=== PATIENT | female | born 1940 | race Caucasian/White ===

== ENCOUNTER → 2017-07-12 | Outpatient (CLI) | payer MEDICARE, BC ==
--- NOTE | 2017-07-12 19:10 | CT ---
EXAMINATION TYPE: CT brain wo con DATE OF EXAM: 07/12/2017 COMPARISON: NONE HISTORY: Left sided facial paralysis CT DLP: 999.8 mGycm Automated exposure control for dose reduction was used. FINDINGS: There are bilateral neural stimulator implants in the left and right thalamus. There is some enlargem ent of the lateral ventricles. There is cerebral cortical atrophy. There is no mass effect nor midlin e shift. There is no sign of intracranial hemorrhage. There is hypodensity in the anterior left inter nal capsule. 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 NO ACUTE INTRACRANIAL ABNORMALITY.
== END | disposition home or self-care (01) ==
LOC: RADCTMAIN 17:36
PROVIDERS: ATTEND Internal Medicine
DX: G31.9 Degenerative disease of nervous system, unspecified (principal)
CPT/HCPCS: 70450

== ENCOUNTER → 2018-04-01 | Outpatient (CLI) | payer MEDICARE, BC ==
--- NOTE | 2018-04-01 13:11 | CT ---
EXAMINATION TYPE: CT cervical spine wo con DATE OF EXAM: 04/01/2018 COMPARISON: None HISTORY: hyperreflexia, rule out herniation or cord compression CT DLP: 376 mGycm. Automated Exposure Control for Dose Reduction was Utilized. TECHNIQUE: CT scan of the cervical spine is obtained without contrast, axial images are obtained, sa gittal and coronal reformatted images are also reviewed. FINDINGS: Cervical spine is visualized in its entirety from C1 through upper thoracic levels, demonst rates slight S-shaped scoliotic curvature on coronal images into the thoracic spine without evidence of acute fracture or dislocation. Prevertebral soft tissue appears within normal limits. The C1-C2 articulation is within normal limits on the coronal images. Vertebral body heights are maintained. There is moderate disc space narrowing C3-C4 level. There is m oderate to advanced disc space narrowing with moderate anterior spurring at C6-C7 level. No large pos terior disc herniations however present on sagittal images. Axial images show uncovertebral facet degenerative changes bilaterally at C3-C4 level contributing to mild bilateral neural foraminal narrowing. Posterior central disc protrusion is effacing anterior th ecal sac on axial image 33. Axial images at C4-C5 level show left-sided uncovertebral facet degenerative changes causing asymmetr ic mild to moderate left-sided neural foraminal narrowing. There is asymmetric mild left-sided neural foraminal narrowing due to uncovertebral facet degenerativ e changes at C5-C6 level axial image 45. Thyroid gland shows 1.5 cm low dense nodule posteriorly lowe r pole level coronal image 6. There is partial visualization of pacemaker wires and moderate calcifie d plaque in the visualized thoracic aorta. There is moderate calcified plaque bilateral carotid bulbs . IMPRESSION: Multilevel degenerative changes as detailed above. No CT evidence for focal cord izabella dannie however. Advise thyroid ultrasound for greater than 1 cm thyroid nodule to further evaluate and characterize.
--- NOTE | 2018-04-01 13:37 | CT ---
EXAMINATION TYPE: CT lumbar spine wo con DATE OF EXAM: 04/01/2018 12:29 PM COMPARISON: None HISTORY: Hyperreflexia rule out prominent disc herniation or cord compression CT DLP: 910 mGycm Automated exposure control for dose reduction was used. Unenhanced CT of the lumbar spine was performed. Bone and soft tissue window settings are submitted as well as coronal and sagittal reconstructions. Findings: There are 5 lumbar type vertebra identified. There is sacralized L5 segment with asymmetric articulation or narrowing of the left L5-S1 joint coronal image 25. There is grade 1 anterolisthesis of L3 on L4 measured 6 to 7 mm sagittal image 22. There is advanced disc space narrowing with vacuum disc phenomenon and endplate sclerosis L3-L4 level. There is vacuum disc phenomenon with mild to mod erate disc space narrowing L4-L5 level. Vertebral body heights are maintained. No acute fracture is s een. No significant spurring is noted. Axial images show the T11-T12, T12-L1, and L1-L2 levels to appear within normal limits. Axial images at L2-L3 level show mild broad disc bulge mildly effacing anterior thecal sac with mild facet degenerative changes bilaterally. Bilateral neural foramina are patent. Axial images at L3-L4 level show spondylolisthesis with moderate facet degenerative changes and ligam entum flavum hypertrophy. There is mild to moderate bilateral inferior neural foraminal narrowing see n. Axial images at L4-L5 level show broad disc bulge mildly effacing anterior thecal sac with mild to mo derate facet degenerative changes bilaterally. There is mild bilateral anterior inferior neural lilian inal narrowing at this level identified. Axial images at L5-S1 level are felt within normal limits. There is moderate to severe calcified plaque of the aorta extending into branch vessels. There is foc al ectasia measuring up to 2.0 cm AP diameter axial image 34. Few diverticula in the right-sided colo n are present. There is partial visualization of significant diverticular disease in the proximal sig moid colon of the left upper pelvis. IMPRESSION: Spondylolisthesis L3-L4 level causes most prominent spinal canal effacement or narrowing. Additional disc herniation L4-L5 level effaces anterior thecal sac. Transitional type L5 vertebra no landen. Prominent sigmoid colonic diverticular disease partially imaged.
== END | disposition home or self-care (01) ==
LOC: RADCTMAIN 11:43
PROVIDERS: ATTEND Psychiatry & Neurology Neurology
DX: M48.02 Spinal stenosis, cervical region (principal); M99.71 Connective tissue and disc stenosis of intervertebral foramina of cervical region; M50.21 Other cervical disc displacement, high cervical region; M47.812 Spondylosis without myelopathy or radiculopathy, cervical region; M51.26 Other intervertebral disc displacement, lumbar region; M43.16 Spondylolisthesis, lumbar region
CPT/HCPCS: 72125; 72131

== ENCOUNTER → 2018-06-20 | Outpatient (CLI) | payer MEDICARE, BC ==
[2018-06-20 13:08] LABS: Glucose 2 Hour 123 mg/dL
[2018-06-20 16:04] LABS: T4, Free (Free Thyroxine) 1.4 ng/dL (0.80-1.80)
[2018-06-20 16:19] LABS: Protein, Total 6.6 g/dL (6.2-8.2)
[2018-06-21 12:24] LABS: Albumin 3.68 g/dL (3.80-4.90); Gamma Globulin 1.06 g/dL (0.70-1.50)
== END ==
LOC: LABWHC1 08:28
PROVIDERS: ATTEND Psychiatry & Neurology Neurology
DX: R20.0 Anesthesia of skin (principal)
CPT/HCPCS: 36415; 82607; 82947; 82950; 83090; 83883; 83921; 84165; 84439; 84443; 84481; 86334

== ENCOUNTER 2018-07-03 14:05 | Inpatient (IN) | payer MEDICARE, BC ==
[2018-07-03] MEDS ORDERED: ASPIRIN 81 MG PO STA (14:25)
--- NOTE | 2018-07-03 14:29 | ED ---
General Adult HPI - General Chief complaint: Chest Pain Stated complaint: chest pain Time Seen by Provider: 07/03/18 14:16 Source: patient, family, RN notes reviewed Mode of arrival: wheelchair Limitations: no limitations - History of Present Illness Initial comments: Patient is a pleasant 78-year-old female presenting to the emergency department with family. Patient states she did have palpitations. Patient had similar symptoms previously associated with atrial fibrillation. Patient felt like her heart was racing. Symptoms lasted about 1 hour and then resolved. Patient did have associated dyspnea and left-sided back discomfort. Patient did not have discomfort of the anterior chest. Patient currently symptom-free. - Related Data Home Medications Medication Instructions Recorded Confirmed Azelastine HCl [Astepro] 1 spray NASAL BID 07/03/18 07/03/18 Cholecalciferol (Vitamin D3) 2,000 unit PO DAILY 07/03/18 07/03/18 [Vitamin D3] Clopidogrel Bisulfate [Plavix] 75 mg PO DAILY 07/03/18 07/03/18 Cranberry Fruit Extract [Cranberry] 200 mg PO DAILY 07/03/18 07/03/18 Diltiazem Cd [Cardizem Cd] 300 mg PO DAILY 07/03/18 07/03/18 Ferrous Sulfate [Feosol] 325 mg PO DAILY 07/03/18 07/03/18 L.acidoph,Paracasei, B.lactis 1 cap PO DAILY 07/03/18 07/03/18 [Probiotic] Levothyroxine Sodium [Synthroid] 25 mcg PO DAILY 07/03/18 07/03/18 Losartan Potassium [Cozaar] 100 mg PO DAILY 07/03/18 07/03/18 Meclizine HCl 25 mg PO TID 07/03/18 07/03/18 Metoprolol Tartrate 25 mg PO BID 07/03/18 07/03/18 Multivitamins, Thera [Multivitamin 1 tab PO DAILY 07/03/18 07/03/18 (formulary)] Salyer-3 Fatty Acids [Salyer-3] 1,000 mg PO DAILY 07/03/18 07/03/18 Polyethylene Glycol 3350 [Miralax] 17 gm PO HS PRN 07/03/18 07/03/18 Temazepam [Restoril] 15 mg PO HS 07/03/18 07/03/18 Ubidecarenone [Co Q-10] 100 mg PO DAILY 07/03/18 07/03/18 hydrALAZINE HCL 50 mg PO BID 07/03/18 07/03/18 Allergies Allergy/AdvReac Type Severity Reaction Status Date / Time acetaminophen [From Vicodin] Allergy Verified 07/03/18 14:28 amantadine Allergy Verified 07/03/18 14:28 clonidine [From Catapres] Allergy Verified 07/03/18 14:28 hydrocodone Allergy Verified 07/03/18 14:28 nadolol [From Corgard] Allergy Verified 07/03/18 14:28 primidone [From Mysoline] Allergy Verified 07/03/18 14:28 Sulfa (Sulfonamide Allergy Verified 07/03/18 14:28 Antibiotics) Tetracyclines Allergy Verified 07/03/18 14:28 Review of Systems ROS Statement: Those systems with pertinent positive or pertinent negative responses have been documented in the HPI. ROS Other: All systems not noted in ROS Statement are negative. Constitutional: Denies: fever Eyes: Denies: eye pain ENT: Denies: ear pain Respiratory: Reports: dyspnea Cardiovascular: Reports: chest pain Endocrine: Denies: fatigue Gastrointestinal: Denies: abdominal pain Genitourinary: Denies: urgency Musculoskeletal: Denies: back pain Skin: Denies: rash Neurological: Denies: weakness Past Medical History Past Medical History: Atrial Fibrillation, Coronary Artery Disease (CAD), Chest Pain / Angina, CVA/TIA, Hypertension Additional Past Medical History / Comment(s): deep brain stimulator History of Any Multi-Drug Resistant Organisms: None Reported Past Surgical History: Appendectomy, Hysterectomy, Tonsillectomy Additional Past Surgical History / Comment(s): sinus surg Past Psychological History: No Psychological Hx Reported Smoking Status: Never smoker Past Alcohol Use History: None Reported Past Drug Use History: None Reported General Exam Limitations: no limitations General appearance: alert, in no apparent distress Head exam: Present: atraumatic Eye exam: Present: normal appearance, PERRL ENT exam: Present: normal oropharynx Neck exam: Present: normal inspection Respiratory exam: Present: normal lung sounds bilaterally. Absent: chest wall tenderness Cardiovascular Exam: Present: regular rate, normal rhythm Expanded Peripheral pulses: 2+: Radial (R), Radial (L), Posterior Tibialis (R), Posterior Tibialis (L), Dorsalis Pedis (R), Dorsalis Pedis (L) GI/Abdominal exam: Present: soft. Absent: tenderness Extremities exam: Present: normal inspection. Absent: pedal edema, calf tenderness Back exam: Present: normal inspection. Absent: tenderness Neurological exam: Present: alert Psychiatric exam: Present: normal affect, normal mood Skin exam: Present: normal color Course Vital Signs 07/03/18 14:08 Temperature 97.7 F Pulse Rate 80 Respiratory 18 Rate Blood Pressure 176/80 O2 Sat by Pulse 97 Oximetry EKG Findings - EKG Comments: EKG Findings:: Sinus rhythm at 79. OH 118. QRS 92. QT 348. QTC 399. Normal axis. Normal QRS. Nonspecific T waves. Medical Decision Making - Medical Decision Making Patient reevaluated and resting comfortably in bed. Patient and family updated on results and plan. Case was discussed with Dr. hodges, who will admit for hospital call. Patient does not meet sepsis criteria. Patient will be be covered with antibiotics for infiltrate. Cardiology will be placed on consult. - Lab Data Result diagrams: 07/03/18 14:37 07/03/18 14:37 Lab Results 07/03/18 07/03/18 07/03/18 Range/Units 14:37 14:37 14:37 WBC 11.0 H (3.8-10.6) k/uL RBC 4.60 (3.80-5.40) m/uL Hgb 13.5 (11.4-16.0) gm/dL Hct 42.5 (34.0-46.0) % MCV 92.3 (80.0-100.0) fL MCH 29.3 (25.0-35.0) pg MCHC 31.8 (31.0-37.0) g/dL RDW 12.9 (11.5-15.5) % Plt Count 279 (150-450) k/uL Neutrophils % 65 % Lymphocytes % 24 % Monocytes % 6 % Eosinophils % 3 % Basophils % 0 % Neutrophils # 7.1 (1.3-7.7) k/uL Lymphocytes # 2.6 (1.0-4.8) k/uL Monocytes # 0.7 (0-1.0) k/uL Eosinophils # 0.4 (0-0.7) k/uL Basophils # 0.0 (0-0.2) k/uL PT 9.7 (9.0-12.0) sec INR 0.9 (<1.2) APTT 23.3 (22.0-30.0) sec D-Dimer 1.16 H (<0.60) mg/L FEU Sodium 138 (137-145) mmol/L Potassium 4.1 (3.5-5.1) mmol/L Chloride 106 (98-107) mmol/L Carbon Dioxide 24 (22-30) mmol/L Anion Gap 8 mmol/L BUN 28 H (7-17) mg/dL Creatinine 0.96 (0.52-1.04) mg/dL Est GFR (CKD-EPI)AfAm 65 (>60 ml/min/1.73 sqM) Est GFR (CKD-EPI)NonAf 56 (>60 ml/min/1.73 sqM) Glucose 147 H (74-99) mg/dL Calcium 10.3 H (8.4-10.2) mg/dL Magnesium 2.1 (1.6-2.3) mg/dL Total Bilirubin 0.5 (0.2-1.3) mg/dL AST 21 (14-36) U/L ALT 18 (9-52) U/L Alkaline Phosphatase 56 (38-126) U/L Troponin I (0.000-0.034) ng/mL Total Protein 7.5 (6.3-8.2) g/dL Albumin 3.9 (3.5-5.0) g/dL 07/03/18 Range/Units 14:37 WBC (3.8-10.6) k/uL RBC (3.80-5.40) m/uL Hgb (11.4-16.0) gm/dL Hct (34.0-46.0) % MCV (80.0-100.0) fL MCH (25.0-35.0) pg MCHC (31.0-37.0) g/dL RDW (11.5-15.5) % Plt Count (150-450) k/uL Neutrophils % % Lymphocytes % % Monocytes % % Eosinophils % % Basophils % % Neutrophils # (1.3-7.7) k/uL Lymphocytes # (1.0-4.8) k/uL Monocytes # (0-1.0) k/uL Eosinophils # (0-0.7) k/uL Basophils # (0-0.2) k/uL PT (9.0-12.0) sec INR (<1.2) APTT (22.0-30.0) sec D-Dimer (<0.60) mg/L FEU Sodium (137-145) mmol/L Potassium (3.5-5.1) mmol/L Chloride (98-107) mmol/L Carbon Dioxide (22-30) mmol/L Anion Gap mmol/L BUN (7-17) mg/dL Creatinine (0.52-1.04) mg/dL Est GFR (CKD-EPI)AfAm (>60 ml/min/1.73 sqM) Est GFR (CKD-EPI)NonAf (>60 ml/min/1.73 sqM) Glucose (74-99) mg/dL Calcium (8.4-10.2) mg/dL Magnesium (1.6-2.3) mg/dL Total Bilirubin (0.2-1.3) mg/dL AST (14-36) U/L ALT (9-52) U/L Alkaline Phosphatase (38-126) U/L Troponin I <0.012 (0.000-0.034) ng/mL Total Protein (6.3-8.2) g/dL Albumin (3.5-5.0) g/dL - Radiology Data Radiology results: report reviewed (Computed tomography scan the chest negative for pulmonary embolism. There is concern for infiltrate.), image reviewed (Chest x-ray shows no heart failure. There may be minimal infiltrate left base.) Disposition Clinical Impression: Pneumonia, Palpitations Disposition: ADMITTED IP TO THIS HOSP Is patient prescribed a controlled substance at d/c from ED?: No Referrals: Sam Desai MD [Primary Care Provider] - 1-2 days Decision Time: 16:18
[2018-07-03 14:48] LABS: Basophils % (A) 0 %; Eosinophils # (A) 0.4 k/uL (0-0.7); Eosinophils % (A) 3 %; HCT 42.5 % (34.0-46.0); HGB 13.5 gm/dL (11.4-16.0); Lymphocytes # (A) 2.6 k/uL (1.0-4.8); Lymphocytes % (A) 24 %; MCH 29.3 pg (25.0-35.0); MCHC 31.8 g/dL (31.0-37.0); MCV 92.3 fL (80.0-100.0); Mean Platelet Volume 6.7; Monocytes # (A) 0.7 k/uL (0-1.0); Monocytes % (A) 6 %; Neutrophils # (A) 7.1 k/uL (1.3-7.7); Neutrophils % (A) 65 %; Platelet Count 279 k/uL (150-450); RDW 12.9 % (11.5-15.5)
[2018-07-03 15:02] LABS: INR 0.9 (<1.2); Partial Thromboplastin Time 23.3 sec (22.0-30.0); Prothrombin Time 9.7 sec (9.0-12.0)
[2018-07-03 15:07] LABS: Albumin 3.9 g/dL (3.5-5.0); Calcium 10.3 mg/dL (8.4-10.2); Magnesium 2.1 mg/dL (1.6-2.3); Potassium 4.1 mmol/L (3.5-5.1); Total Bilirubin 0.5 mg/dL (0.2-1.3); Total Protein 7.5 g/dL (6.3-8.2)
[2018-07-03 15:09] LABS: D-Dimer 1.16 mg/L FEU (<0.60)
--- NOTE | 2018-07-03 15:10 | XR ---
EXAMINATION TYPE: XR chest 2V DATE OF EXAM: 07/03/2018 COMPARISON: NONE HISTORY: Chest pain TECHNIQUE: Frontal and lateral views of the chest are obtained. FINDINGS: Heart and mediastinum are normal. Thoracic aorta is atheromatous. There are chest leads. C ostophrenic angles are clear of fluid. There is minimal density at the left costophrenic angle consis tent with small infiltrate or atelectasis. IMPRESSION: No heart failure. Minimal infiltrate at the lateral left lung base. Normal heart.
[2018-07-03] MEDS ORDERED: SODIUM CHLORIDE 0.9% 1,000 ML IV STA (15:14)
--- NOTE | 2018-07-03 16:13 | CT ---
EXAMINATION TYPE: CT angio chest DATE OF EXAM: 07/03/2018 3:51 PM COMPARISON: None HISTORY: SOB, Chest pain and tachycardia CT DLP: 193.3 mGycm Automated exposure control for dose reduction was used. CONTRAST: CTA scan of the thorax is performed with IV Contrast, patient injected with 80 mL of Isovue 370, pulm onary embolism protocol. There are 3-D post processed images.. FINDINGS: There is patchy reticular interstitial infiltrate in the mid and lower lung mccauley. There is mild car diomegaly. There is no pericardial effusion. Thoracic aorta is atheromatous. There is no evidence of aneurysm. There is no evidence of dissection. Ascending aorta measures 3.2 cm. There is normal contra st opacification of the pulmonary arteries. I see no filling defect. There are no hilar masses. There is enlarged pretracheal lymph node that measures 2.3 cm. The bony thorax is intact. IMPRESSION: NO EVIDENCE OF PULMONARY EMBOLISM. ATHEROSCLEROTIC VASCULAR DISEASE. SINGLE ENLARGED PRETRACHEAL LYMP H NODE.
[2018-07-03] MEDS ORDERED: IPRATROPIUM-ALBUTEROL 3 ML NEB INHALATION PRN (16:19)
[2018-07-03] MEDS ORDERED: PNEUMONIA PROTOCOL UTILIZED 1 EACH MISC PO PRN (16:19)
[2018-07-03] MEDS ORDERED: AZITHROMYCIN 500 MG in SODIUM CHLORIDE 0.9% 250 ML IVPB STA (16:19)
[2018-07-03] MEDS ORDERED: cefTRIAXone IN SWFI 1,000 MG/10 ML SYRINGE IVP STA (16:23)
[2018-07-03] MEDS: SODIUM CHLORIDE 0.9% 1,000 ML IV SCH (17:27)
[2018-07-03] MEDS: MECLIZINE 25 MG TAB PO SCH (20:46)
[2018-07-03] MEDS: AZELASTINE 137MCG/SPRAY NASAL SCH ×2 (20:46→20:52)
[2018-07-03] MEDS: METOPROLOL TARTRATE 25 MG TAB PO SCH (20:46)
[2018-07-03] MEDS: TEMAZEPAM 15 MG CAP PO SCH (20:46)
[2018-07-03] MEDS: hydrALAZINE HCL 50 MG TAB PO SCH (20:46)
[2018-07-04] MEDS: SODIUM CHLORIDE 0.9% 1,000 ML IV SCH ×3 (00:28→23:37)
[2018-07-04] MEDS: LEVOTHYROXINE 25 MCG TAB PO SCH (05:09)
--- NOTE | 2018-07-04 09:25 | XR ---
EXAMINATION TYPE: XR chest 2V DATE OF EXAM: 07/04/2018 COMPARISON: Chest x-ray and CTA chest from yesterday. HISTORY: Pneumonia. TECHNIQUE: Frontal and lateral views of the chest are obtained. FINDINGS: There is left basilar linear opacity favoring atelectasis. Right lung is clear. No signifi cant pleural effusion or pneumothorax is seen. The cardiac silhouette size is stable and within kaylee l limits. Stimulator device overlies anterior left chest with leads extending superiorly. Atheroscler otic thoracic aorta is noted. The osseous structures are intact. IMPRESSION: Linear opacity left lung base favors atelectasis.
[2018-07-04] MEDS: DILTIAZEM CD 300 MG CAP.ER.24H PO SCH (09:37)
[2018-07-04] MEDS: CLOPIDOGREL 75 MG TAB PO SCH (09:37)
[2018-07-04] MEDS: LOSARTAN 50 MG TAB PO SCH (09:37)
[2018-07-04] MEDS: MECLIZINE 25 MG TAB PO SCH ×3 (09:37→22:26)
[2018-07-04] MEDS: METOPROLOL TARTRATE 25 MG TAB PO SCH ×2 (09:37→19:57)
[2018-07-04] MEDS: hydrALAZINE HCL 50 MG TAB PO SCH ×2 (09:37→19:57)
[2018-07-04] MEDS: AZELASTINE 137MCG/SPRAY NASAL SCH ×2 (09:38→19:58)
--- NOTE | 2018-07-04 09:52 | P.CRDCN ---
History of Present Illness History of present illness: This is a pleasant 78-year-old female past medical history significant for paroxysmal atrial fibrillation, hypertension, history of CVA/TIA in the past and Parkinson's disease. She uses a walker for ambulation and has a brain stimulator in place. The patient denies history of coronary artery disease. She follows with Dr. Fernández out of [facility] for cardiology. We have been asked to see her in consultation secondary to an episode of palpitations noted yesterday. Yesterday morning she took a shower, which she states is quite taxing for her. Shortly thereafter she was walking to the [facility] and she started feeling dizzy and lightheaded. She sat down to prevent herself from falling and then started feeling her heart racing. She states the palpitations persisted for approximately one hour. She does have a history of atrial fibrillation in the past and states this felt like a similar episode of going into atrial fibrillation. She then started having a discomfort in the left scapular region. Her symptoms of pain subsided when the palpitations subsided. She also describes feeling increasingly short of breath and fatigue over the previous one year. EKG on arrival reveals sinus mechanism with PACs, nonspecific T-wave abnormalities laterally with mild ST depression noted laterally. There is no old for comparison. Chest x-ray reveals a left lower lobe infiltrate. No heart failure. CT chest is negative for pulmonary embolism with redemonstration of the left lobe infiltrate. She has been started on antibiotics in the emergency department. Laboratory data reviewed, WBC 11, hemoglobin 13.5, platelets 279, d-dimer 1.16, sodium 138, potassium 4.1, creatinine 0.96, magnesium 2.1, cardiac enzymes negative 3. Current cardiac medications include Plavix 75 mg daily, hydralazine 50 mg twice a day, diltiazem 300 mg daily, losartan 100 mg daily, Lopressor 25 mg twice a day. At the time of my exam: CONSTITUTIONAL: Denies fever. Denies chills. EYES: Denies blurred vision. Denies vision changes. Denies eye pain. EARS, NOSE, MOUTH & THROAT: Denies headache. Denies sore throat. Denies ear pain. CARDIOVASCULAR: Denies chest pain. Denies shortness of breath. Denies orthopnea. Denies PND. Denies palpitations. RESPIRATORY: Denies cough. GASTROINTESTINAL: Denies abdominal pain. Denies diarrhea. Denies constipation. Denies nausea. Denies vomiting. MUSCULOSKELETAL: Denies myalgias. INTEGUMENTARY: Denies pruitis. Denies rash. NEUROLOGIC: Denies numbness. Denies tingling. Denies weakness. PSYCHIATRIC: Denies anxiety. Denies depression. ENDOCRINE: Complains of fatigue. Denies weight change. Denies polydipsia. Denies polyurina. GENITOURINARY: Denies burning, hematuria or urgency with micturation. HEMATOLOGIC: Denies history of anemia. Denies bleeding. Blood pressure 156/82 heart rate 65 afebrile maintaining oxygen saturation on room air GENERAL: This is a 78-year-old female in no apparent distress at the time of my examination. HEENT: Head is atraumatic, normocephalic. Pupils are equal, round. Sclerae anicteric. Conjunctivae are clear. Mucous membranes of the mouth are moist. Neck is supple. There is no jugular venous distention. No carotid bruit is heard. LUNGS: Clear to auscultation no wheezes, rales or rhonchi. No chest wall tenderness is noted on palpation or with deep breathing. HEART: Regular rate and rhythm with systolic ejection murmur at the left sternal border, no rubs or gallops. S1 and S2 heard. ABDOMEN: Soft, nontender. Bowel sounds are heard. No organomegaly noted. EXTREMITIES: No evidence of peripheral edema and no calf tenderness noted. VASCULAR: Radial and dorsalis pedis pulses palpated, no evidence of clubbing. NEUROLOGIC: Patient is awake, alert and oriented x3. ASSESSMENT Palpitations, suggestive of episode of paroxysmal atrial fibrillation. Paroxysmal atrial fibrillation, currently maintaining sinus mechanism Hypertension Parkinson's disease PLAN An acute coronary event has been ruled out. Check TSH. Obtain 2-D echocardiogram and Doppler study to assess cardiac structure and function. Request records from her primary batcher operator to determine the reasoning for Plavix use, pt states it is for her a-fib. Ongoing telemetry monitoring for an acute arrhythmia. Further recommendations to follow based upon clinical course. Thank you kindly for this consultation. Nurse Practitioner note has been reviewed, I agree with a documented findings and plan of care. Patient was seen and examined. Past Medical History Past Medical History: Atrial Fibrillation, Coronary Artery Disease (CAD), Chest Pain / Angina, CVA/TIA, Hypertension Additional Past Medical History / Comment(s): deep brain stimulator History of Any Multi-Drug Resistant Organisms: None Reported Past Surgical History: Appendectomy, Hysterectomy, Tonsillectomy Additional Past Surgical History / Comment(s): sinus surg Past Psychological History: No Psychological Hx Reported Smoking Status: Never smoker Past Alcohol Use History: None Reported Past Drug Use History: None Reported Medications and Allergies Home Medications Medication Instructions Recorded Confirmed Type Azelastine HCl [Astepro] 1 spray NASAL BID 07/03/18 07/03/18 History Cholecalciferol (Vitamin D3) 2,000 unit PO DAILY 07/03/18 07/03/18 History [Vitamin D3] Clopidogrel Bisulfate [Plavix] 75 mg PO DAILY 07/03/18 07/03/18 History Cranberry Fruit Extract [Cranberry] 200 mg PO DAILY 07/03/18 07/03/18 History Diltiazem Cd [Cardizem Cd] 300 mg PO DAILY 07/03/18 07/03/18 History Ferrous Sulfate [Feosol] 325 mg PO DAILY 07/03/18 07/03/18 History L.acidoph,Paracasei, B.lactis 1 cap PO DAILY 07/03/18 07/03/18 History [Probiotic] Levothyroxine Sodium [Synthroid] 25 mcg PO DAILY 07/03/18 07/03/18 History Losartan Potassium [Cozaar] 100 mg PO DAILY 07/03/18 07/03/18 History Meclizine HCl 25 mg PO TID 07/03/18 07/03/18 History Metoprolol Tartrate 25 mg PO BID 07/03/18 07/03/18 History Multivitamins, Thera [Multivitamin 1 tab PO DAILY 07/03/18 07/03/18 History (formulary)] [place]-3 Fatty Acids [[place]-3] 1,000 mg PO DAILY 07/03/18 07/03/18 History Polyethylene Glycol 3350 [Miralax] 17 gm PO HS PRN 07/03/18 07/03/18 History Temazepam [Restoril] 15 mg PO HS 07/03/18 07/03/18 History Ubidecarenone [Co Q-10] 100 mg PO DAILY 07/03/18 07/03/18 History hydrALAZINE HCL 50 mg PO BID 07/03/18 07/03/18 History Allergies Allergy/AdvReac Type Severity Reaction Status Date / Time acetaminophen [From Vicodin] Allergy Verified 07/03/18 14:28 amantadine Allergy Verified 07/03/18 14:28 clonidine [From Catapres] Allergy Verified 07/03/18 14:28 hydrocodone Allergy Verified 07/03/18 14:28 nadolol [From Corgard] Allergy Verified 07/03/18 14:28 primidone [From Mysoline] Allergy Verified 07/03/18 14:28 Sulfa (Sulfonamide Allergy Verified 07/03/18 14:28 Antibiotics) Tetracyclines Allergy Verified 07/03/18 14:28 Physical Exam Vitals: Vital Signs Temp Pulse Pulse Resp BP BP Pulse Ox 07/04/18 03:30 97.6 F 65 17 156/82 07/03/18 23:23 97.4 F L 68 17 154/83 07/03/18 19:37 97.3 F L 67 17 158/84 99 07/03/18 19:25 68 16 07/03/18 17:08 97.3 F L 68 16 159/84 100 07/03/18 16:30 98.8 F 63 18 161/79 100 07/03/18 16:00 58 L 18 149/91 100 07/03/18 15:00 60 18 158/84 07/03/18 14:08 97.7 F 80 18 176/80 97 Intake and Output 07/03/18 07/04/18 07/04/18 22:59 06:59 14:59 Other: Voiding Method Toilet Toilet # Voids 2 1 Results 07/03/18 14:37 07/03/18 14:37 Cardiac Enzymes 07/03/18 07/03/18 07/03/18 Range/Units 14:37 14:37 20:27 AST 21 (14-36) U/L Troponin I <0.012 <0.012 (0.000-0.034) ng/mL 07/04/18 Range/Units 02:51 AST (14-36) U/L Troponin I <0.012 (0.000-0.034) ng/mL Coagulation 07/03/18 Range/Units 14:37 PT 9.7 (9.0-12.0) sec APTT 23.3 (22.0-30.0) sec CBC 07/03/18 Range/Units 14:37 WBC 11.0 H (3.8-10.6) k/uL RBC 4.60 (3.80-5.40) m/uL Hgb 13.5 (11.4-16.0) gm/dL Hct 42.5 (34.0-46.0) % Plt Count 279 (150-450) k/uL Comprehensive Metabolic Panel 07/03/18 Range/Units 14:37 Sodium 138 (137-145) mmol/L Potassium 4.1 (3.5-5.1) mmol/L Chloride 106 (98-107) mmol/L Carbon Dioxide 24 (22-30) mmol/L BUN 28 H (7-17) mg/dL Creatinine 0.96 (0.52-1.04) mg/dL Glucose 147 H (74-99) mg/dL Calcium 10.3 H (8.4-10.2) mg/dL AST 21 (14-36) U/L ALT 18 (9-52) U/L Alkaline Phosphatase 56 (38-126) U/L Total Protein 7.5 (6.3-8.2) g/dL Albumin 3.9 (3.5-5.0) g/dL Current Medications Generic Name Dose Route Start Last Admin Trade Name Freq PRN Reason Stop Dose Admin Albuterol/Ipratropium 3 ml 07/03/18 16:19 07/03/18 16:40 Duoneb 0.5 Mg-3 Mg/3 Ml Soln INHALATION 3 ml RT-Q4H PRN Administration shortness of breath Azelastine HCl 1 spray 07/03/18 21:00 07/03/18 20:52 Astepro NASAL Not Given BID SHEREEN Azithromycin 500 mg 07/04/18 16:00 Zithromax PO Q24H SHEREEN Clopidogrel Bisulfate 75 mg 07/04/18 09:00 Plavix PO DAILY SHEREEN Diltiazem HCl 300 mg 07/04/18 09:00 Cardizem Cd PO DAILY SHEREEN Hydralazine HCl 50 mg 07/03/18 21:00 07/03/18 20:46 Apresoline PO 50 mg BID SHEREEN Administration Ceftriaxone Sodium 1 gm/ 50 mls @ 100 mls/hr 07/04/18 16:00 Sodium Chloride IVPB 07/07/18 16:01 Q24H SHEREEN Sodium Chloride 1,000 mls @ 100 mls/hr 07/03/18 16:30 07/04/18 00:28 Saline 0.9% IV Not Given .Q10H SHEREEN Levothyroxine Sodium 25 mcg 07/04/18 06:30 07/04/18 05:09 Synthroid PO 25 mcg DAILY@0630 SHEREEN Administration Losartan Potassium 100 mg 07/04/18 09:00 Cozaar PO DAILY SHEREEN Meclizine HCl 25 mg 07/03/18 22:00 07/03/18 20:46 Antivert PO 25 mg TID SHEREEN Administration Metoprolol Tartrate 25 mg 07/03/18 21:00 07/03/18 20:46 Lopressor PO 25 mg BID SHEREEN Administration Miscellaneous Information 1 each 07/03/18 16:19 Pneumonia Protocol Utilized PO ONCE PRN Per Protocol Temazepam 15 mg 07/03/18 21:00 07/03/18 20:46 Restoril PO 15 mg HS SHEREEN Administration Intake and Output 07/03/18 07/04/18 07/04/18 22:59 06:59 14:59 Other: Voiding Method Toilet Toilet # Voids 2 1 07/03/18 14:37 07/03/18 14:37
--- NOTE | 2018-07-04 11:54 | ECHOF ---
Referral Reason:cp, afib MEASUREMENTS -------- HEIGHT: 160.0 cm WEIGHT: 59.0 kg BP: RVIDd: 2.6 cm (< 3.3) IVSd: 1.4 cm (0.6 - 1.1) LVIDd: 4.1 cm (3.9 - 5.3) LVPWd: 1.1 cm (0.6 - 1.1) IVSs: 1.6 cm LVIDs: 3.1 cm LVPWs: 1.3 cm LA Diam: 4.7 cm (2.7 - 3.8) LAESV Index (A-L): 35.00 ml/m Ao Diam: 2.7 cm (2.0 - 3.7) AV Cusp: 1.9 cm (1.5 - 2.6) LA Diam: 4.7 cm (2.7 - 3.8) MV EXCURSION: 16.312 mm (> 18.000) MV EF SLOPE: 34 mm/s (70 - 150) EPSS: 0.6 cm MV E Jerel: 0.83 m/s MV DecT: 133 ms MV A Jerel: 0.53 m/s MV E/A Ratio: 1.54 RAP: 5.00 mmHg RVSP: 45.27 mmHg FINDINGS -------- Undetermined rhythm. This was a technically adequate study. The left ventricular size is normal. Overall left ventricular systolic function is normal with, an EF between 55 - 60 %. The right ventricle is normal in size. The left atrium is moderately dilated. LA is moderately dilated 34-39 ml/m2 The right atrial size is normal. There is mild aortic valve sclerosis. Trace to mild aortic regurgitation. Mild mitral annular calcification present. Mild mitral regurgitation is present. Mild tricuspid regurgitation present. There is borderline pulmonary artery hypertension. The righ t ventricular systolic pressure, as measured by Doppler, is 45.27mmHg. There is no pulmonic regurgitation present. The aortic root size is normal. There is no pericardial effusion. CONCLUSIONS -------- 1. The left ventricular size is normal. 2. Overall left ventricular systolic function is normal with, an EF between 55 - 60 %. 3. The right ventricle is normal in size. 4. The left atrium is moderately dilated. 5. LA is moderately dilated 34-39 ml/m2 6. The right atrial size is normal. 7. There is mild aortic valve sclerosis. 8. Trace to mild aortic regurgitation. 9. Mild mitral annular calcification present. 10. Mild mitral regurgitation is present. 11. Mild tricuspid regurgitation present. 12. There is borderline pulmonary artery hypertension. 13. The right ventricular systolic pressure, as measured by Doppler, is 45.27mmHg. 14. There is no pulmonic regurgitation present. 15. The aortic root size is normal. 16. There is no pericardial effusion. MANAGER OF PROGRAM: Nicole Mason RDCS
[2018-07-04 14:04] LABS: T4, Free (Free Thyroxine) 1.69 ng/dL (0.78-2.19)
--- NOTE | 2018-07-04 15:15 | P.HPIM ---
History of Present Illness H&P Date: 07/04/18 Chief Complaint: Dizziness Patient is a 78-year-old female with a known history of paroxysmal atrial fibrillation not on anticoagulation, hypertension, history of CVA/TIA, Par kinson's disease with brain stimulator in place came to ER with complaints of palpitations. Patient says that yesterday she felt dizzy and vertigo-like symptoms after taking shower. Shortly after that patient was walking at the [facility] and felt dizzy and lightheaded and felt like palpitations. Patient did have shortness of breath and left shoulder pain and back pain. Symptoms lasted for about an hour. Patient denied any nausea vomiting or sweating. Patient called her PCP who recommended to go to ER. Currently her symptoms have been subsided. Denied any cough or sputum production. Denied any recent illnesses or sick contacts. EKG showed sinus rhythm with PACs Chest x-ray showed no heart failure. We infiltrate at the left lung base. Normal heart. CT angiogram of the chest showed no evidence of pulmonary embolism. Atherosclerotic vascular disease. Single enlarged pretracheal lymph node. Repeat chest x-ray this morning showed linear opacity left lung base favors atelectasis. D-dimer 1.16, Troponin 3 negative WBC 11 and hemoglobin 13.5. BNP 26 and creatinine 0.94 Calcium 10.3 Review of Systems Constitutional: Patient denies any fever or chills . No generalized weakness or weight loss. Abdomen: Patient denied nausea vomiting and diarrhea and abdominal pain. Cardiovascular: Patient denies any chest pain or short of breath. Patient does have palpitations. No leg swelling Respiratory: patient denied any cough is from production. No shortness of breath Neurologic: Patient denied any numbness or tingling headache. Musculoskeletal: Patient denies any complaints of joint swelling or deformity. Skin: Negative Psychiatric: Negative Endocrine: No heat or cold intolerance. No recent weight gain. Genitourinary: No dysuria or hematuria. All other 14 point ROS negative except the above Past Medical History Past Medical History: Atrial Fibrillation, Coronary Artery Disease (CAD), Chest Pain / Angina, CVA/TIA, Hypertension Additional Past Medical History / Comment(s): deep brain stimulator History of Any Multi-Drug Resistant Organisms: None Reported Past Surgical History: Appendectomy, Hysterectomy, Tonsillectomy Additional Past Surgical History / Comment(s): sinus surg Past Psychological History: No Psychological Hx Reported Smoking Status: Never smoker Past Alcohol Use History: None Reported Past Drug Use History: None Reported Medications and Allergies Home Medications Medication Instructions Recorded Confirmed Type Azelastine HCl [Astepro] 1 spray NASAL BID 07/03/18 07/03/18 History Cholecalciferol (Vitamin D3) 2,000 unit PO DAILY 07/03/18 07/03/18 History [Vitamin D3] Clopidogrel Bisulfate [Plavix] 75 mg PO DAILY 07/03/18 07/03/18 History Cranberry Fruit Extract [Cranberry] 200 mg PO DAILY 07/03/18 07/03/18 History Diltiazem Cd [Cardizem Cd] 300 mg PO DAILY 07/03/18 07/03/18 History Ferrous Sulfate [Feosol] 325 mg PO DAILY 07/03/18 07/03/18 History L.acidoph,Paracasei, B.lactis 1 cap PO DAILY 07/03/18 07/03/18 History [Probiotic] Levothyroxine Sodium [Synthroid] 25 mcg PO DAILY 07/03/18 07/03/18 History Losartan Potassium [Cozaar] 100 mg PO DAILY 07/03/18 07/03/18 History Meclizine HCl 25 mg PO TID 07/03/18 07/03/18 History Metoprolol Tartrate 25 mg PO BID 07/03/18 07/03/18 History Multivitamins, Thera [Multivitamin 1 tab PO DAILY 07/03/18 07/03/18 History (formulary)] [place]-3 Fatty Acids [[place]-3] 1,000 mg PO DAILY 07/03/18 07/03/18 History Polyethylene Glycol 3350 [Miralax] 17 gm PO HS PRN 07/03/18 07/03/18 History Temazepam [Restoril] 15 mg PO HS 07/03/18 07/03/18 History Ubidecarenone [Co Q-10] 100 mg PO DAILY 07/03/18 07/03/18 History hydrALAZINE HCL 50 mg PO BID 07/03/18 07/03/18 History Allergies Allergy/AdvReac Type Severity Reaction Status Date / Time acetaminophen [From Vicodin] Allergy Verified 07/03/18 14:28 amantadine Allergy Verified 07/03/18 14:28 clonidine [From Catapres] Allergy Verified 07/03/18 14:28 hydrocodone Allergy Verified 07/03/18 14:28 nadolol [From Corgard] Allergy Verified 07/03/18 14:28 primidone [From Mysoline] Allergy Verified 07/03/18 14:28 Sulfa (Sulfonamide Allergy Verified 07/03/18 14:28 Antibiotics) Tetracyclines Allergy Verified 07/03/18 14:28 Physical Exam Vitals: Vital Signs Temp Pulse Pulse Resp BP BP BP 07/04/18 08:12 97.5 F L 68 18 175/79 07/04/18 03:30 97.6 F 65 17 156/82 07/03/18 23:23 97.4 F L 68 17 154/83 07/03/18 19:37 97.3 F L 67 17 158/84 07/03/18 19:25 68 16 07/03/18 17:08 97.3 F L 68 16 159/84 07/03/18 16:30 98.8 F 63 18 161/79 07/03/18 16:00 58 L 18 149/91 07/03/18 15:00 60 18 158/84 07/03/18 14:08 97.7 F 80 18 176/80 Pulse Ox 07/04/18 08:12 94 L 07/04/18 03:30 07/03/18 23:23 07/03/18 19:37 99 07/03/18 19:25 07/03/18 17:08 100 07/03/18 16:30 100 07/03/18 16:00 100 07/03/18 15:00 07/03/18 14:08 97 Intake and Output 07/03/18 07/04/18 07/04/18 22:59 06:59 14:59 Other: Voiding Method Toilet Toilet Toilet # Voids 2 1 PHYSICAL EXAMINATION: Patient is lying in the bed comfortably, no acute distress, awake alert and oriented.. HEENT: Normocephalic. Neck is supple. Pupils reactive. Nostrils clear. Oral cavity is moist. Ears reveal no drainage. Neck reveals no JVD, carotid bruits, or thyromegaly. CHEST EXAMINATION: Trachea is central. Symmetrical expansion. Bibasilar diminished air entry. Lung mccauley clear to auscultation and percussion. CARDIAC: Normal S1, S2 with no gallops. No murmurs ABDOMEN: Soft. Bowel sounds normal. No organomegaly. No abdominal bruits. Extremities: reveal no edema. No clubbing or cyanosis Neurologically awake, alert, oriented x3 with well-coordinated movements. No focal deficits noted Skin: No rash or skin lesions. Psychiatric: Coperative. Nonsuicidal Musculoskeletal: No joint swelling or deformity. Normal range of motion. Results CBC & Chem 7: 07/03/18 14:37 07/03/18 14:37 Labs: Abnormal Lab Results - Last 24 Hours (Table) 07/03/18 07/03/18 07/03/18 Range/Units 14:37 14:37 14:37 WBC 11.0 H (3.8-10.6) k/uL D-Dimer 1.16 H (<0.60) mg/L FEU BUN 28 H (7-17) mg/dL Glucose 147 H (74-99) mg/dL Calcium 10.3 H (8.4-10.2) mg/dL Thrombosis Risk Factor Assmnt - DVT/VTE Prophylaxis DVT/VTE Prophylaxis: Pharmacologic Prophylaxis ordered - Choose All That Apply Any of the Below Risk Factors Present?: No Each Risk Factor Represents 3 Points: Age 75 years or older Thrombosis Risk Factor Assessment Total Risk Factor Score: 3 Thrombosis Risk Factor Assessment Level: Moderate Risk Assessment and Plan Assessment: Dizziness and palpitations likely due to episode of paroxysmal defibrillation Paroxysmal fibrillation not on anticoagulation. Currently maintaining sinus rhythm Hypertension Hypothyroidism Prior history of CVA/TIA Parkinson's disease currently on brain stimulator Lifelong nonsmoker DVT prophylaxis with heparin subcu History of vertigo Plan: Patient will be continued on telemetry monitoring. Serial EKG and troponin 3 negative. TSH was ordered. Continue with IV hydration. Cardiology has seen the patient and 2-D echocardiogram was ordered. Request for records from her primary server engineer has been sent. Continue with home medications and further recommendations based on the clinical course. Time with Patient: Greater than 30
[2018-07-04] MEDS: AZITHROMYCIN 500 MG TAB PO SCH (16:01)
[2018-07-04] MEDS: TEMAZEPAM 15 MG CAP PO SCH (19:58)
[2018-07-05] MEDS: LEVOTHYROXINE 25 MCG TAB PO SCH (04:21)
[2018-07-05 05:59] LABS: Basophils # (A) 0.1 k/uL (0-0.2); Basophils % (A) 1 %; Eosinophils # (A) 0.4 k/uL (0-0.7); Eosinophils % (A) 4 %; HCT 36.9 % (34.0-46.0); HGB 12.3 gm/dL (11.4-16.0); Lymphocytes # (A) 2.8 k/uL (1.0-4.8); Lymphocytes % (A) 32 %; MCH 30.2 pg (25.0-35.0); MCHC 33.3 g/dL (31.0-37.0); MCV 90.7 fL (80.0-100.0); Mean Platelet Volume 7.4; Monocytes # (A) 0.7 k/uL (0-1.0); Monocytes % (A) 8 %; Neutrophils # (A) 4.6 k/uL (1.3-7.7); Neutrophils % (A) 52 %; Platelet Count 264 k/uL (150-450); RBC 4.07 m/uL (3.80-5.40); RDW 13.3 % (11.5-15.5); WBC 8.7 k/uL (3.8-10.6)
[2018-07-05 06:07] LABS: Calcium 9.6 mg/dL (8.4-10.2); Potassium 4.1 mmol/L (3.5-5.1)
[2018-07-05 07:41] VITALS: RESP 18
[2018-07-05] MEDS: LOSARTAN 50 MG TAB PO SCH (07:57)
[2018-07-05] MEDS: CLOPIDOGREL 75 MG TAB PO SCH (07:57)
[2018-07-05] MEDS: METOPROLOL TARTRATE 25 MG TAB PO SCH (07:57)
[2018-07-05] MEDS: hydrALAZINE HCL 50 MG TAB PO SCH (07:57)
[2018-07-05] MEDS: DILTIAZEM CD 300 MG CAP.ER.24H PO SCH (07:57)
[2018-07-05] MEDS: MECLIZINE 25 MG TAB PO SCH ×2 (07:57→16:57)
[2018-07-05] MEDS: AZELASTINE 137MCG/SPRAY NASAL SCH (07:59)
[2018-07-05 12:31] VITALS: BP 178/69; PULSE 52; TEMP 97.9
[2018-07-05] MEDS: SODIUM CHLORIDE 0.9% 1,000 ML IV SCH (14:28)
--- NOTE | 2018-07-05 15:01 | P.PN ---
Subjective This is a pleasant 78-year-old female past medical history significant for paroxysmal atrial fibrillation, hypertension, history of CVA/TIA in the past and Parkinson's disease. She uses a walker for ambulation and has a brain stimulator in place. The patient denies history of coronary artery disease. She follows with Dr. Fernández out of [place] for cardiology. She is seen and examined sitting up eating lunch. She denies any ongoing palpitations since admission. Telemetry tracings reviewed and are unremarkable for an acute arr hythmia. Echocardiogram reveals preserved left ventricular systolic function with ejection fraction 55-60%, moderately dilated left atrium, mild aortic valve sclerosis, mild aortic regurgitation, mild mitral regurgitation, mild tricuspid regurgitation and borderline pulmonary hypertension with an RVSP of 45 mmHg. TSH is 5.66 with a free T4 of 1.69. Blood pressure 178/69 heart rate 52 afebrile maintaining oxygen saturation on room air. GENERAL: This is a 78-year-old female in no apparent distress at the time of my examination. HEENT: Head is atraumatic, normocephalic. Pupils are equal, round. Sclerae anicteric. Conjunctivae are clear. Mucous membranes of the mouth are moist. Neck is supple. There is no jugular venous distention. No carotid bruit is heard. LUNGS: Clear to auscultation no wheezes, rales or rhonchi. No chest wall tenderness is noted on palpation or with deep breathing. HEART: Regular rate and rhythm with systolic ejection murmur at the left sternal border, no rubs or gallops. S1 and S2 heard. EXTREMITIES: No evidence of peripheral edema and no calf tenderness noted. ASSESSMENT Palpitations, suggestive of episode of paroxysmal atrial fibrillation. Paroxysmal atrial fibrillation, currently maintaining sinus mechanism Hypertension Parkinson's disease PLAN Overall stable from a cardiac perspective. Hydralazine can be increased to 3 times a day dosing for better control of blood pressure. Follow-up with her primary bed machine operator upon discharge. Nurse Practitioner note has been reviewed, I agree with a documented findings and plan of care. Patient was seen and examined. Objective - Vital Signs Vital signs: Vital Signs Temp 97.9 F 07/05/18 11:53 Pulse 52 L 07/05/18 11:53 Resp 18 07/05/18 11:53 BP 178/69 07/05/18 11:53 Pulse Ox 95 07/05/18 11:53 Intake & Output 07/04/18 07/05/18 07/05/18 18:59 06:59 18:59 Intake Total 436 236 Balance 436 236 Intake: Oral 436 236 Other: Voiding Method Toilet Toilet Toilet # Voids 1 1 1 - Labs CBC & Chem 7: 07/05/18 05:28 07/05/18 05:28 Labs: Abnormal Lab Results - Last 24 Hours (Table) 07/05/18 Range/Units 05:28 Chloride 108 H (98-107) mmol/L BUN 26 H (7-17) mg/dL Microbiology - Last 24 Hours (Table) 07/03/18 16:45 Blood Culture - Preliminary Blood No Growth after 24 hours
[2018-07-05] MEDS ORDERED: hydrALAZINE HCL 50 MG TAB PO SCH (16:00)
[2018-07-05] MEDS: AZITHROMYCIN 500 MG TAB PO SCH (16:57)
== END 2018-07-05 18:11 | disposition home health service (06) | DRG 309 ==
LOC: EC 14:05 → 1SOBS 16:20 → OBSVTOIN 07-04 11:09
PROVIDERS: ADMIT Internal Medicine; ATTEND Internal Medicine
DX: I48.0 Paroxysmal atrial fibrillation (principal); J98.11 Atelectasis; G20 Parkinson's disease; I27.20 Pulmonary hypertension, unspecified; I08.3 Combined rheumatic disorders of mitral, aortic and tricuspid valves; I25.10 Atherosclerotic heart disease of native coronary artery without angina pectoris; I10 Essential (primary) hypertension; E03.9 Hypothyroidism, unspecified; M54.9 Dorsalgia, unspecified; M25.512 Pain in left shoulder; Z79.02 Long term (current) use of antithrombotics/antiplatelets; Z79.890 Hormone replacement therapy; Z79.899 Other long term (current) drug therapy; Z96.89 Presence of other specified functional implants; Z86.73 Personal history of transient ischemic attack (TIA), and cerebral infarction without residual deficits; Z90.710 Acquired absence of both cervix and uterus; Z90.49 Acquired absence of other specified parts of digestive tract; Z88.1 Allergy status to other antibiotic agents; Z88.5 Allergy status to narcotic agent; Z88.2 Allergy status to sulfonamides; Z88.8 Allergy status to other drugs, medicaments and biological substances
CPT/HCPCS: 36415; 71046; 71275; 80048; 80053; 83605; 83735; 84439; 84443; 84484; 85025; 85379; 85610; 85730; 87040; 93005; 93306; 96361; 96374; 99285

== ENCOUNTER 2018-09-15 16:13 | Emergency (ER) | payer MEDICARE, BC ==
[2018-09-15 16:20] VITALS: RESP 18
[2018-09-15] MEDS ORDERED: SODIUM CHLORIDE 0.9% 1,000 ML IV STA (17:28)
[2018-09-15 18:05] LABS: Basophils % (A) 0 %; Eosinophils # (A) 0.3 k/uL (0-0.7); Eosinophils % (A) 4 %; HCT 39.7 % (34.0-46.0); HGB 12.9 gm/dL (11.4-16.0); Lymphocytes # (A) 2.8 k/uL (1.0-4.8); Lymphocytes % (A) 37 %; MCH 30.2 pg (25.0-35.0); MCHC 32.5 g/dL (31.0-37.0); MCV 93.1 fL (80.0-100.0); Mean Platelet Volume 6.8; Monocytes # (A) 0.5 k/uL (0-1.0); Monocytes % (A) 7 %; Neutrophils # (A) 3.6 k/uL (1.3-7.7); Neutrophils % (A) 48 %; Platelet Count 254 k/uL (150-450); RBC 4.27 m/uL (3.80-5.40); RDW 12.7 % (11.5-15.5); WBC 7.5 k/uL (3.8-10.6)
--- NOTE | 2018-09-15 18:07 | ED ---
SOB HPI - General Chief Complaint: Shortness of Breath Stated Complaint: poss pneumonia/SOB/chest pressure Time Seen by Provider: 09/15/18 17:27 Source: patient, RN notes reviewed, old records reviewed Mode of arrival: wheelchair Limitations: no limitations - History of Present Illness Initial Comments: This is a 78-year-old female the ER for evaluation. She comes in for feelings of thoughts of pneumonia. Patient has history of A. fib and paced rhythm neuro symptoms related. Patient states her blood pressure does run high under manual check is normal. A she denies current shortness of breath mild cough no congestion no fevers. Patient also has not been eating or drinking appropriately per family. Patient has been getting ready for a move and is been overdoing it doing a lot of active and physical were around her house as well as stressed out over her Situation. Daughter is at bedside providing history MD Complaint: cough -: days(s) Severity: mild Severity scale (1-10): 2 Consistency: constant Improves With: nothing Worsens With: exertion Known History Of: congestive heart failure Context: recent URI Associated Symptoms: denies other symptoms Treatments Prior to Arrival: none - Related Data Home Medications Medication Instructions Recorded Confirmed Azelastine HCl [Astepro] 1 spray NASAL BID 07/03/18 09/15/18 Cholecalciferol (Vitamin D3) 2,000 unit PO DAILY 07/03/18 09/15/18 [Vitamin D3] Clopidogrel Bisulfate [Plavix] 75 mg PO DAILY 07/03/18 09/15/18 Cranberry Fruit Extract [Cranberry] 200 mg PO DAILY 07/03/18 09/15/18 Levothyroxine Sodium [Synthroid] 25 mcg PO DAILY 07/03/18 09/15/18 Meclizine HCl 25 mg PO TID PRN 07/03/18 09/15/18 Metoprolol Tartrate 25 mg PO BID 07/03/18 09/15/18 Multivitamins, Thera [Multivitamin 1 tab PO DAILY 07/03/18 09/15/18 (formulary)] [place]-3 Fatty Acids [[place]-3] 1,000 mg PO DAILY 07/03/18 09/15/18 Polyethylene Glycol 3350 [Miralax] 17 gm PO HS PRN 07/03/18 09/15/18 Temazepam [Restoril] 15 mg PO HS 07/03/18 09/15/18 Ubidecarenone [Co Q-10] 100 mg PO DAILY 07/03/18 09/15/18 Bioflex 1 tab PO DAILY 09/15/18 09/15/18 Diltiazem HCl [Cartia Xt] 180 mg PO DAILY 09/15/18 09/15/18 L. Rhamnosus GG/Inulin [Culturelle 1 cap PO DAILY 09/15/18 09/15/18 Probiotics Capsule] Levodopa [Inbrija] 2 cap INHALATION RT-DAILY 09/15/18 09/15/18 Olmesartan Medoxomil [Benicar] 40 mg PO DAILY 09/15/18 09/15/18 Previous Rx's Medication Instructions Recorded hydrALAZINE HCL [Apresoline] 50 mg PO TID #90 tab 07/05/18 Allergies Allergy/AdvReac Type Severity Reaction Status Date / Time acetaminophen [From Vicodin] Allergy Verified 09/15/18 18:10 amantadine Allergy Verified 09/15/18 18:10 clonidine [From Catapres] Allergy Verified 09/15/18 18:10 hydrocodone Allergy Verified 09/15/18 18:10 nadolol [From Corgard] Allergy Verified 09/15/18 18:10 primidone [From Mysoline] Allergy Verified 09/15/18 18:10 Sulfa (Sulfonamide Allergy Verified 09/15/18 18:10 Antibiotics) Tetracyclines Allergy Verified 09/15/18 18:10 Review of Systems ROS Statement: Those systems with pertinent positive or pertinent negative responses have been documented in the HPI. ROS Other: All systems not noted in ROS Statement are negative. Past Medical History Past Medical History: Atrial Fibrillation, Coronary Artery Disease (CAD), Chest Pain / Angina, CVA/TIA, Hypertension Additional Past Medical History / Comment(s): deep brain stimulator History of Any Multi-Drug Resistant Organisms: None Reported Past Surgical History: Appendectomy, Hysterectomy, Tonsillectomy Additional Past Surgical History / Comment(s): sinus surg Past Psychological History: No Psychological Hx Reported Smoking Status: Never smoker Past Alcohol Use History: None Reported Past Drug Use History: None Reported General Exam Limitations: no limitations General appearance: alert, in no apparent distress Head exam: Present: atraumatic, normocephalic, normal inspection Eye exam: Present: normal appearance, PERRL, EOMI. Absent: scleral icterus, conjunctival injection, periorbital swelling ENT exam: Present: normal exam, mucous membranes moist Neck exam: Present: normal inspection. Absent: tenderness, meningismus, lymphadenopathy Respiratory exam: Present: normal lung sounds bilaterally. Absent: respiratory distress, wheezes, rales, rhonchi, stridor Cardiovascular Exam: Present: regular rate, normal rhythm, normal heart sounds. Absent: systolic murmur, diastolic murmur, rubs, gallop, clicks GI/Abdominal exam: Present: soft, normal bowel sounds. Absent: distended, tenderness, guarding, rebound, rigid Extremities exam: Present: normal inspection, full ROM, normal capillary refill. Absent: tenderness, pedal edema, joint swelling, calf tenderness Back exam: Present: normal inspection Neurological exam: Present: alert, oriented X3, CN II-XII intact Psychiatric exam: Present: normal affect, normal mood Skin exam: Present: warm, dry, intact, normal color. Absent: rash Course Vital Signs 09/15/18 16:17 Temperature 97.6 F Pulse Rate 58 L Respiratory 18 Rate Blood Pressure 193/80 O2 Sat by Pulse 98 Oximetry - Reevaluation(s) Reevaluation #1: 09/15/18 19:27 Medical records reviewed Reevaluation #2: 09/15/18 19:27 Patient has no significant illness, feels well able to ambulate eating and drinking in the emergency department Medical Decision Making - Medical Decision Making 78 female the ER for evaluation presents today for evaluation regards to weakness not feeling well, likely increased stress from pertinent move. Labwork urine and x-ray all normal here. Family happy with news and okay for discharge home - Lab Data Result diagrams: 09/15/18 17:50 09/15/18 17:50 Lab Results 09/15/18 09/15/18 09/15/18 Range/Units 17:50 17:50 17:50 WBC 7.5 (3.8-10.6) k/uL RBC 4.27 (3.80-5.40) m/uL Hgb 12.9 (11.4-16.0) gm/dL Hct 39.7 (34.0-46.0) % MCV 93.1 (80.0-100.0) fL MCH 30.2 (25.0-35.0) pg MCHC 32.5 (31.0-37.0) g/dL RDW 12.7 (11.5-15.5) % Plt Count 254 (150-450) k/uL Neutrophils % 48 % Lymphocytes % 37 % Monocytes % 7 % Eosinophils % 4 % Basophils % 0 % Neutrophils # 3.6 (1.3-7.7) k/uL Lymphocytes # 2.8 (1.0-4.8) k/uL Monocytes # 0.5 (0-1.0) k/uL Eosinophils # 0.3 (0-0.7) k/uL Basophils # 0.0 (0-0.2) k/uL PT (9.0-12.0) sec INR (<1.2) APTT (22.0-30.0) sec Sodium 140 (137-145) mmol/L Potassium 4.4 (3.5-5.1) mmol/L Chloride 108 H (98-107) mmol/L Carbon Dioxide 24 (22-30) mmol/L Anion Gap 8 mmol/L BUN 21 H (7-17) mg/dL Creatinine 0.83 (0.52-1.04) mg/dL Est GFR (CKD-EPI)AfAm 77 (>60 ml/min/1.73 sqM) Est GFR (CKD-EPI)NonAf 67 (>60 ml/min/1.73 sqM) Glucose 110 H (74-99) mg/dL Calcium 9.9 (8.4-10.2) mg/dL Magnesium 2.2 (1.6-2.3) mg/dL Total Bilirubin 0.5 (0.2-1.3) mg/dL AST 25 (14-36) U/L ALT 14 (9-52) U/L Alkaline Phosphatase 49 (38-126) U/L Troponin I (0.000-0.034) ng/mL NT-Pro-B Natriuret Pep 921 pg/mL Total Protein 7.4 (6.3-8.2) g/dL Albumin 4.2 (3.5-5.0) g/dL Urine Color Urine Appearance (Clear) Urine pH (5.0-8.0) Ur Specific [place] (1.001-1.035) Urine Protein (Negative) Urine Glucose (UA) (Negative) Urine Ketones (Negative) Urine Blood (Negative) Urine Nitrite (Negative) Urine Bilirubin (Negative) Urine Urobilinogen (<2.0) mg/dL Ur Leukocyte Esterase (Negative) 09/15/18 09/15/18 09/15/18 Range/Units 17:50 17:50 17:50 WBC (3.8-10.6) k/uL RBC (3.80-5.40) m/uL Hgb (11.4-16.0) gm/dL Hct (34.0-46.0) % MCV (80.0-100.0) fL MCH (25.0-35.0) pg MCHC (31.0-37.0) g/dL RDW (11.5-15.5) % Plt Count (150-450) k/uL Neutrophils % % Lymphocytes % % Monocytes % % Eosinophils % % Basophils % % Neutrophils # (1.3-7.7) k/uL Lymphocytes # (1.0-4.8) k/uL Monocytes # (0-1.0) k/uL Eosinophils # (0-0.7) k/uL Basophils # (0-0.2) k/uL PT 9.7 (9.0-12.0) sec INR 0.9 (<1.2) APTT 23.5 (22.0-30.0) sec Sodium (137-145) mmol/L Potassium (3.5-5.1) mmol/L Chloride (98-107) mmol/L Carbon Dioxide (22-30) mmol/L Anion Gap mmol/L BUN (7-17) mg/dL Creatinine (0.52-1.04) mg/dL Est GFR (CKD-EPI)AfAm (>60 ml/min/1.73 sqM) Est GFR (CKD-EPI)NonAf (>60 ml/min/1.73 sqM) Glucose (74-99) mg/dL Calcium (8.4-10.2) mg/dL Magnesium (1.6-2.3) mg/dL Total Bilirubin (0.2-1.3) mg/dL AST (14-36) U/L ALT (9-52) U/L Alkaline Phosphatase (38-126) U/L Troponin I <0.012 (0.000-0.034) ng/mL NT-Pro-B Natriuret Pep pg/mL Total Protein (6.3-8.2) g/dL Albumin (3.5-5.0) g/dL Urine Color Light Yellow Urine Appearance Clear (Clear) Urine pH 6.5 (5.0-8.0) Ur Specific [place] 1.007 (1.001-1.035) Urine Protein Negative (Negative) Urine Glucose (UA) Negative (Negative) Urine Ketones Negative (Negative) Urine Blood Negative (Negative) Urine Nitrite Negative (Negative) Urine Bilirubin Negative (Negative) Urine Urobilinogen <2.0 (<2.0) mg/dL Ur Leukocyte Esterase Negative (Negative) - EKG Data -: EKG Interpreted by Me (EKG shows NSR rate of 59 W[place] 144 QRS 88 QTc 417) - Radiology Data Radiology results: report reviewed (Chest x-rays negative for acute disease), image reviewed Disposition Clinical Impression: Weakness, Palpitations Disposition: HOME SELF-CARE Condition: Good Instructions (If sedation given, give patient instructions): Weakness (ED) Is patient prescribed a controlled substance at d/c from ED?: No Referrals: Sam Desai MD [Primary Care Provider] - 1-2 days
[2018-09-15 18:14] LABS: Albumin 4.2 g/dL (3.5-5.0); Calcium 9.9 mg/dL (8.4-10.2); Magnesium 2.2 mg/dL (1.6-2.3); Potassium 4.4 mmol/L (3.5-5.1); Total Bilirubin 0.5 mg/dL (0.2-1.3); Total Protein 7.4 g/dL (6.3-8.2)
[2018-09-15 18:18] LABS: Appearance,Urine Clear (Clear); Bilirubin,Urine Negative (Negative); Blood,Urine Negative (Negative); Color,Urine Light Yellow; Glucose,Urine (UA) Negative (Negative); Ketones,Urine Negative (Negative); Leukocyte Esterase,Urine Negative (Negative); Nitrite,Urine Negative (Negative); PH, Urine 6.5 (5.0-8.0); Protein,Urine Negative (Negative); Specific Gravity,Urine 1.007 (1.001-1.035); Urobilinogen,Urine <2.0 mg/dL (<2.0)
[2018-09-15 18:20] LABS: INR 0.9 (<1.2); Partial Thromboplastin Time 23.5 sec (22.0-30.0); Prothrombin Time 9.7 sec (9.0-12.0)
--- NOTE | 2018-09-15 18:20 | XR ---
EXAMINATION TYPE: XR chest 2V DATE OF EXAM: 09/15/2018 COMPARISON: 07/04/2018 HISTORY: Difficulty breathing TECHNIQUE: Frontal and lateral views of the chest are obtained. FINDINGS: There is no heart failure nor confluent pneumonic infiltrate. There is neurostimulator ove r the left axilla. There is no pleural effusion. Heart size is normal. Thoracic aorta is atheromatous . IMPRESSION: No active cardiopulmonary disease. No change.
[2018-09-15 19:33] VITALS: BP 194/84; PULSE 60; TEMP 98.9
== END 2018-09-15 19:36 | disposition home or self-care (01) ==
LOC: EC 16:13
DX: R00.2 Palpitations (principal); R53.1 Weakness; R06.02 Shortness of breath; R05 Cough; I48.91 Unspecified atrial fibrillation; I25.119 Atherosclerotic heart disease of native coronary artery with unspecified angina pectoris; I11.0 Hypertensive heart disease with heart failure; I50.9 Heart failure, unspecified; Z86.73 Personal history of transient ischemic attack (TIA), and cerebral infarction without residual deficits; Z79.01 Long term (current) use of anticoagulants; Z79.890 Hormone replacement therapy; Z79.899 Other long term (current) drug therapy; Z88.6 Allergy status to analgesic agent; Z88.1 Allergy status to other antibiotic agents; Z88.5 Allergy status to narcotic agent; Z88.2 Allergy status to sulfonamides; Z88.8 Allergy status to other drugs, medicaments and biological substances
CPT/HCPCS: 36415; 71046; 80053; 81003; 83735; 83880; 84484; 85025; 85610; 85730; 93005; 96360; 99285

== ENCOUNTER → 2018-09-23 | Outpatient (CLI) | payer MEDICARE, BC ==
--- NOTE | 2018-09-23 12:37 | BD ---
EXAMINATION TYPE: Axial Bone Density DATE OF EXAM: 09/23/2018 COMPARISON: 08/02/2002 CLINICAL HISTORY: Postmenopausal female. Osteoporosis screening. Height: 62 Weight: 126.0 FRAX RISK QUESTIONS: Alcohol (3 or more units per day): no Family History (Parent hip fracture): no Glucocorticoids (More than 3mos): no (Ex: prednisone, prednisolone, methylprednisolone, dexamethasone, and hydrocortisone). History of Fracture in Adulthood: no Secondary Osteoporosis: 1. Type 1 Diabetes: no 2. Hyperthyroidism: no 3. Menopause before 45: yes 4. Malnutrition: no 5. Chronic liver disease: no Rheumatoid Arthritis: no Current Tobacco Use: no RISK FACTORS HISTORY OF: Family History of Osteoporosis: no Active: no Diet low in dairy products/other sources of calcium: yes Postmenopausal woman: hysterectomy age 36 Frequent falls: yes MEDICATIONS: bp meds, cholesterol meds Thyroid Medications: thyroid How Lon year Additional History: EXAM MEASUREMENTS: Bone mineral densitometry was performed using the [employer] System. Bone mineral density as measured about the Lumbar spine is: ----- L1-L4(G/cm2): 0.996 T Score Values are as follows: ----- L2: -2.7 ----- L3: -1.7 ----- L4: 0.0 ----- L1-L4: -1.5 Bone mineral density has decreased -18.8% since 08.02.2002 Bone mineral density about the R hip (g/cm2): 0.724 Bone mineral density about the L hip (g/cm2): 0.850 T Score values are as follows: -----R Neck: -2.3 -----L Neck: -1.6 -----R Total: -2.1 -----L Total: -1.7 Bone mineral density has decreased 25.8% since 08.02.2002 IMPRESSION: Osteopenia (T Score between -2.5 and -1). There is slightly increased risk of fracture and the patient may be considered for treatment. Re-Screen 2-5 years. NOTE: T-SCORE=SD OF THE YOUNG ADULT MEAN.
[2018-09-23 12:43] LABS: Appearance,Urine Clear (Clear); Bilirubin,Urine Negative (Negative); Blood,Urine Negative (Negative); Color,Urine Yellow; Glucose,Urine (UA) Negative (Negative); Ketones,Urine Negative (Negative); Leukocyte Esterase,Urine Negative (Negative); Nitrite,Urine Negative (Negative); Protein,Urine Negative (Negative); Specific Gravity,Urine 1.012 (1.001-1.035); Urobilinogen,Urine <2.0 mg/dL (<2.0)
== END | disposition home or self-care (01) ==
LOC: RADBDWWP 10:35
PROVIDERS: ATTEND Internal Medicine
DX: M85.80 Other specified disorders of bone density and structure, unspecified site (principal); N18.3 Chronic kidney disease, stage 3 (moderate)
CPT/HCPCS: 77080; 81003

== ENCOUNTER 2019-01-09 21:11 | Inpatient (IN) | payer MEDICARE, BC ==
[2019-01-09] MEDS ORDERED: ONDANSETRON 4 MG/2 ML VIAL IVP STA (21:57)
[2019-01-09] MEDS ORDERED: SODIUM CHLORIDE 0.9% 1,000 ML IV STA (21:57)
--- NOTE | 2019-01-09 22:01 | ED ---
General Adult HPI - General Chief complaint: Nausea/Vomiting/Diarrhea Stated complaint: Weakness Time Seen by Provider: 01/09/19 21:33 Source: patient, family, EMS Mode of arrival: EMS Limitations: no limitations - History of Present Illness Initial comments: Patient presents to the ED by ambulance for evaluation with her daughter at bedside. Patient states she has had watery diarrhea for the past 2 weeks or so, and she states that she feels generally weak. Patient also states that she has been nauseated, but she denies vomiting. Patient and daughter both deny recent travel abroad, recent antibiotic use or known sick contact. Patient denies hav ing any pain, fever or chills, headache, focal numbness/weakness/neuro deficit, chest pain, dyspnea, palpitations, vomiting, abdominal pain, bloody or melanotic stool, dysuria/hematuria/urinary symptoms, or any other symptoms or complaints. - Related Data Home Medications Medication Instructions Recorded Confirmed Azelastine HCl [Astepro] 1 spray NASAL BID 07/03/18 01/09/19 Cholecalciferol (Vitamin D3) 2,000 unit PO DAILY 07/03/18 01/09/19 [Vitamin D3] Clopidogrel Bisulfate [Plavix] 75 mg PO DAILY 07/03/18 01/09/19 Cranberry Fruit Extract [Cranberry] 200 mg PO DAILY 07/03/18 01/09/19 Levothyroxine Sodium [Synthroid] 25 mcg PO DAILY 07/03/18 01/09/19 Meclizine HCl 25 mg PO TID PRN 07/03/18 01/09/19 Metoprolol Tartrate 25 mg PO BID 07/03/18 01/09/19 Multivitamins, Thera [Multivitamin 1 tab PO DAILY 07/03/18 01/09/19 (formulary)] [place]-3 Fatty Acids [[place]-3] 1,000 mg PO DAILY 07/03/18 01/09/19 Polyethylene Glycol 3350 [Miralax] 17 gm PO HS PRN 07/03/18 01/09/19 Temazepam [Restoril] 15 mg PO HS 07/03/18 01/09/19 Ubidecarenone [Co Q-10] 100 mg PO DAILY 07/03/18 01/09/19 Diltiazem HCl [Cartia Xt] 180 mg PO DAILY 09/15/18 01/09/19 L. Rhamnosus GG/Inulin [Culturelle 1 cap PO DAILY 09/15/18 01/09/19 Probiotics Capsule] Olmesartan Medoxomil [Benicar] 40 mg PO DAILY 09/15/18 01/09/19 Carbidopa-Levodopa 25-100 mg 1 tab PO TID 01/09/19 01/09/19 [Sinemet 25-100] DULoxetine HCL [Cymbalta] 30 mg PO HS 01/09/19 01/09/19 Glucosam/Yobani-Msm1/C/Mannie/Bosw 1 tab PO DAILY 01/09/19 01/09/19 [Glucosamine-Chondroitin Tablet] Iron Complex 1 tab PO MOFR 01/09/19 01/09/19 Previous Rx's Medication Instructions Recorded hydrALAZINE HCL [Apresoline] 50 mg PO TID #90 tab 07/05/18 Allergies Allergy/AdvReac Type Severity Reaction Status Date / Time acetaminophen [From Vicodin] Allergy Verified 01/09/19 22:12 amantadine Allergy Verified 01/09/19 22:12 clonidine [From Catapres] Allergy Verified 01/09/19 22:12 hydrocodone Allergy Verified 01/09/19 22:12 nadolol [From Corgard] Allergy Verified 01/09/19 22:12 primidone [From Mysoline] Allergy Verified 01/09/19 22:12 Sulfa (Sulfonamide Allergy Verified 01/09/19 22:12 Antibiotics) Tetracyclines Allergy Verified 01/09/19 22:12 Review of Systems ROS Statement: Those systems with pertinent positive or pertinent negative responses have been documented in the HPI. ROS Other: All systems not noted in ROS Statement are negative. Past Medical History Past Medical History: Atrial Fibrillation, Coronary Artery Disease (CAD), Chest Pain / Angina, CVA/TIA, Hypertension Additional Past Medical History / Comment(s): deep brain stimulator History of Any Multi-Drug Resistant Organisms: None Reported Past Surgical History: Appendectomy, Hysterectomy, Tonsillectomy Additional Past Surgical History / Comment(s): sinus surg Past Psychological History: No Psychological Hx Reported Smoking Status: Never smoker Past Alcohol Use History: None Reported Past Drug Use History: None Reported General Exam Limitations: no limitations General appearance: alert Head exam: Present: atraumatic, normocephalic Eye exam: Present: normal appearance, PERRL, EOMI ENT exam: Present: mucous membranes dry Neck exam: Present: other (Trachea is in midline). Absent: tenderness, meningismus Respiratory exam: Present: normal lung sounds bilaterally. Absent: respiratory distress, wheezes, rales, rhonchi Cardiovascular Exam: Present: regular rate, normal rhythm, normal heart sounds, other (Normal radial pulses bilaterally) GI/Abdominal exam: Present: soft, normal bowel sounds. Absent: distended, tenderness, guarding Rectal exam: Present: normal rectal tone, other (Green stool was present in the rectal vault; ED RN was present during rectal examination). Absent: mass, tenderness Extremities exam: Absent: tenderness, pedal edema, calf tenderness Neurological exam: Present: alert, oriented X3. Absent: motor sensory deficit Psychiatric exam: Present: normal affect, normal mood Skin exam: Present: warm, dry, intact, normal color Course Vital Signs 01/09/19 01/09/19 21:13 22:52 Temperature 97.4 F L Pulse Rate 61 70 Respiratory 16 16 Rate Blood Pressure 201/94 192/109 O2 Sat by Pulse 96 98 Oximetry - Reevaluation(s) Reevaluation #1: 01/09/19 23:50 Patient denies development of any new symptoms while in the ED. Patient's abdomen remains soft and nontender on exam. Patient is afebrile and without leukocytosis. Patient's labs are fairly unremarkable. Patient and daughter are aware of the patient's test results. Daughter states that the patient has been unable to manage on her own at home secondary to her weakness, and she wishes for the patient to be admitted to the hospital. Patient agrees with hospital admission as well. Dr. Keane was made aware of the patient's case earlier tonight, and he said that he would be happy to admit the patient to the hospital if needed. Will admit the patient to the hospital at this time. EKG Findings - EKG Comments: EKG Findings:: Normal sinus rhythm with premature supraventricular complexes, ventricular rate of 65 bpm, normal W[place] and QRS intervals, normal QT interval, nonspecific T-wave abnormality, minimal voltage criteria for LVH Medical Decision Making - Lab Data Result diagrams: 01/09/19 21:39 01/09/19 21:39 Lab Results 01/09/19 01/09/19 01/09/19 Range/Units 21:39 21:39 21:39 WBC 10.1 (3.8-10.6) k/uL RBC 4.12 (3.80-5.40) m/uL Hgb 12.4 (11.4-16.0) gm/dL Hct 39.4 (34.0-46.0) % MCV 95.6 (80.0-100.0) fL MCH 30.1 (25.0-35.0) pg MCHC 31.5 (31.0-37.0) g/dL RDW 13.0 (11.5-15.5) % Plt Count 341 (150-450) k/uL Neutrophils % 69 % Lymphocytes % 18 % Monocytes % 9 % Eosinophils % 2 % Basophils % 0 % Neutrophils # 6.9 (1.3-7.7) k/uL Lymphocytes # 1.8 (1.0-4.8) k/uL Monocytes # 0.9 (0-1.0) k/uL Eosinophils # 0.2 (0-0.7) k/uL Basophils # 0.0 (0-0.2) k/uL Sodium 135 L (137-145) mmol/L Potassium 3.9 (3.5-5.1) mmol/L Chloride 99 (98-107) mmol/L Carbon Dioxide 28 (22-30) mmol/L Anion Gap 8 mmol/L BUN 16 (7-17) mg/dL Creatinine 0.85 (0.52-1.04) mg/dL Est GFR (CKD-EPI)AfAm 75 (>60 ml/min/1.73 sqM) Est GFR (CKD-EPI)NonAf 65 (>60 ml/min/1.73 sqM) Glucose 123 H (74-99) mg/dL Calcium 9.5 (8.4-10.2) mg/dL Total Bilirubin 0.5 (0.2-1.3) mg/dL AST 23 (14-36) U/L ALT 9 (9-52) U/L Alkaline Phosphatase 52 (38-126) U/L Troponin I <0.012 (0.000-0.034) ng/mL Total Protein 6.7 (6.3-8.2) g/dL Albumin 3.5 (3.5-5.0) g/dL Lipase 73 (23-300) U/L Urine Color Urine Appearance (Clear) Urine pH (5.0-8.0) Ur Specific [place] (1.001-1.035) Urine Protein (Negative) Urine Glucose (UA) (Negative) Urine Ketones (Negative) Urine Blood (Negative) Urine Nitrite (Negative) Urine Bilirubin (Negative) Urine Urobilinogen (<2.0) mg/dL Ur Leukocyte Esterase (Negative) Urine RBC (0-5) /hpf Urine WBC (0-5) /hpf Ur Squamous Epith Cells (0-4) /hpf Urine Bacteria (None) /hpf Urine Mucus (None) /hpf 01/09/19 Range/Units 22:30 WBC (3.8-10.6) k/uL RBC (3.80-5.40) m/uL Hgb (11.4-16.0) gm/dL Hct (34.0-46.0) % MCV (80.0-100.0) fL MCH (25.0-35.0) pg MCHC (31.0-37.0) g/dL RDW (11.5-15.5) % Plt Count (150-450) k/uL Neutrophils % % Lymphocytes % % Monocytes % % Eosinophils % % Basophils % % Neutrophils # (1.3-7.7) k/uL Lymphocytes # (1.0-4.8) k/uL Monocytes # (0-1.0) k/uL Eosinophils # (0-0.7) k/uL Basophils # (0-0.2) k/uL Sodium (137-145) mmol/L Potassium (3.5-5.1) mmol/L Chloride (98-107) mmol/L Carbon Dioxide (22-30) mmol/L Anion Gap mmol/L BUN (7-17) mg/dL Creatinine (0.52-1.04) mg/dL Est GFR (CKD-EPI)AfAm (>60 ml/min/1.73 sqM) Est GFR (CKD-EPI)NonAf (>60 ml/min/1.73 sqM) Glucose (74-99) mg/dL Calcium (8.4-10.2) mg/dL Total Bilirubin (0.2-1.3) mg/dL AST (14-36) U/L ALT (9-52) U/L Alkaline Phosphatase (38-126) U/L Troponin I (0.000-0.034) ng/mL Total Protein (6.3-8.2) g/dL Albumin (3.5-5.0) g/dL Lipase (23-300) U/L Urine Color Light Yellow Urine Appearance Clear (Clear) Urine pH 6.5 (5.0-8.0) Ur Specific [place] 1.008 (1.001-1.035) Urine Protein Negative (Negative) Urine Glucose (UA) Negative (Negative) Urine Ketones Trace H (Negative) Urine Blood Negative (Negative) Urine Nitrite Negative (Negative) Urine Bilirubin Negative (Negative) Urine Urobilinogen <2.0 (<2.0) mg/dL Ur Leukocyte Esterase Small H (Negative) Urine RBC 9 H (0-5) /hpf Urine WBC 11 H (0-5) /hpf Ur Squamous Epith Cells <1 (0-4) /hpf Urine Bacteria Rare H (None) /hpf Urine Mucus Rare H (None) /hpf Disposition Clinical Impression: Nausea, Diarrhea, Generalized weakness Disposition: ADMITTED IP TO THIS [facility] Condition: Stable Is patient prescribed a controlled substance at d/c from ED?: No Time of Disposition: 23:53
[2019-01-09 22:22] LABS: Basophils % (A) 0 %; Eosinophils # (A) 0.2 k/uL (0-0.7); Eosinophils % (A) 2 %; HCT 39.4 % (34.0-46.0); HGB 12.4 gm/dL (11.4-16.0); Lymphocytes # (A) 1.8 k/uL (1.0-4.8); Lymphocytes % (A) 18 %; MCH 30.1 pg (25.0-35.0); MCHC 31.5 g/dL (31.0-37.0); MCV 95.6 fL (80.0-100.0); Mean Platelet Volume 6.8; Monocytes # (A) 0.9 k/uL (0-1.0); Monocytes % (A) 9 %; Neutrophils # (A) 6.9 k/uL (1.3-7.7); Neutrophils % (A) 69 %; Platelet Count 341 k/uL (150-450); RBC 4.12 m/uL (3.80-5.40); WBC 10.1 k/uL (3.8-10.6)
[2019-01-09 22:32] LABS: Albumin 3.5 g/dL (3.5-5.0); Calcium 9.5 mg/dL (8.4-10.2); Potassium 3.9 mmol/L (3.5-5.1); Total Bilirubin 0.5 mg/dL (0.2-1.3); Total Protein 6.7 g/dL (6.3-8.2)
[2019-01-09 22:55] LABS: Appearance,Urine Clear (Clear); Bacteria,Urine Rare /hpf; Bilirubin,Urine Negative (Negative); Blood,Urine Negative (Negative); Color,Urine Light Yellow; Glucose,Urine (UA) Negative (Negative); Ketones,Urine Trace (Negative); Leukocyte Esterase,Urine Small (Negative); Mucus,Urine Rare /hpf; Nitrite,Urine Negative (Negative); PH, Urine 6.5 (5.0-8.0); Protein,Urine Negative (Negative); RBC,Urine 9 /hpf (0-5); Specific Gravity,Urine 1.008 (1.001-1.035); Squamous Epithelial Cell,Urine <1 /hpf (0-4); Urobilinogen,Urine <2.0 mg/dL (<2.0)
[2019-01-09] MEDS ORDERED: ONDANSETRON 4 MG/2 ML VIAL IVP PRN (23:53)
[2019-01-09] MEDS ORDERED: NALOXONE 0.4 MG/ML 1 ML VIAL IV PRN (23:53)
[2019-01-10] MEDS: SODIUM CHLORIDE 0.9% 1,000 ML IV SCH ×2 (00:32→21:45)
[2019-01-10] MEDS ORDERED: DILTIAZEM 5 MG/ML 5 ML VIAL IVP STA (00:44)
[2019-01-10] MEDS: LEVOTHYROXINE 25 MCG TAB PO SCH (06:12)
[2019-01-10] MEDS: CLOPIDOGREL 75 MG TAB PO SCH (08:10)
[2019-01-10] MEDS: METOPROLOL TARTRATE 25 MG TAB PO SCH ×2 (08:10→21:41)
[2019-01-10] MEDS: CARBIDOPA-LEVODOPA 25-100 MG 1 EACH TAB PO SCH ×3 (08:11→21:40)
[2019-01-10] MEDS: hydrALAZINE HCL 50 MG TAB PO SCH ×3 (08:11→21:40)
[2019-01-10] MEDS: DILTIAZEM CD 180 MG CAP.ER.24H PO SCH (08:11)
[2019-01-10 09:11] LABS: Basophils # (A) 0.1 k/uL (0-0.2); Basophils % (A) 1 %; Eosinophils # (A) 0.2 k/uL (0-0.7); Eosinophils % (A) 2 %; HCT 44.2 % (34.0-46.0); HGB 13.2 gm/dL (11.4-16.0); Lymphocytes # (A) 2.7 k/uL (1.0-4.8); Lymphocytes % (A) 32 %; MCH 29.5 pg (25.0-35.0); MCHC 29.9 g/dL (31.0-37.0); MCV 98.5 fL (80.0-100.0); Mean Platelet Volume 6.9; Monocytes # (A) 0.7 k/uL (0-1.0); Monocytes % (A) 9 %; Neutrophils # (A) 4.7 k/uL (1.3-7.7); Neutrophils % (A) 54 %; Platelet Count 364 k/uL (150-450); RBC 4.49 m/uL (3.80-5.40); WBC 8.7 k/uL (3.8-10.6)
[2019-01-10 09:46] LABS: Albumin 3.4 g/dL (3.5-5.0); Calcium 9.1 mg/dL (8.4-10.2); Potassium 4.2 mmol/L (3.5-5.1); Total Bilirubin 0.5 mg/dL (0.2-1.3); Total Protein 6.6 g/dL (6.3-8.2)
[2019-01-10] MEDS ORDERED: MECLIZINE 25 MG TAB PO PRN (13:28)
--- NOTE | 2019-01-10 14:01 | XR ---
EXAMINATION TYPE: XR chest 1V portable DATE OF EXAM: 01/10/2019 COMPARISON: 09/15/2018 HISTORY: Congestive heart failure. Shortness of breath. TECHNIQUE: Single frontal view of the chest is obtained. FINDINGS: Neurostimulator partially obscures the left mediastinal border and left mid lung. Sarah B lines are seen indicative of interstitial edema, mild. There is no focal air space opacity, pleural effusion, or pneumothorax seen. The cardiac silhouette size is within normal limits. The osseous s tructures are intact. There is diffuse osseous demineralization. IMPRESSION: Mild interstitial edema with Sarah B lines noted. No pneumothorax or focal consolidatio n.
--- NOTE | 2019-01-10 14:01 | XR ---
2 view abdomen HISTORY: Diarrhea 2 views of the abdomen, no comparisons Lung bases are clear. There is no evident bowel obstruction or pneumoperitoneum. Bone mineralization is reduced. Probable vascular calcifications are noted within the pelvis. Degenerative disc changes n oted the lower lumbar spine. IMPRESSION: No acute abnormality is evident
--- NOTE | 2019-01-10 14:30 | XR ---
EXAMINATION TYPE: XR mandible complete DATE OF EXAM: 01/10/2019 COMPARISON: NONE HISTORY: Fall with subsequent left jaw pain and bruising. TECHNIQUE: 6 views of the mandible were obtained. FINDINGS: External tubing overlies the left mandible partially obscuring the left mandible. Nasal sep ana m is midline. Paranasal sinuses are well aerated. Hearing aids are seen. Osseous structures appear grossly intact. Moderate degenerative changes of the cervical spine. IMPRESSION: No acute displaced fracture is seen of the mandible.
[2019-01-10] MEDS: IOPAMIDOL CONTRAST (ORAL USE) VIAL PO PRN ×2 (17:36→18:26)
--- NOTE | 2019-01-10 18:54 | HP ---
HISTORY AND PHYSICAL DATE OF SERVICE: 01/10/2019. CHIEF COMPLAINTS: Diarrhea and weakness. HISTORY OF PRESENT ILLNESS: This 78-year-old woman with a past medical history of multiple medical problems, including atrial fibrillation, history of CAD, CVA, TIA, hypertension, history of deep brain stimulator, being followed by Dr. Gustavo Desai in the outpatient setting, was complaining of diarrhea for the last 2 weeks. Multiple episodes of diarrhea resulted in significant weakness and the patient had some fall also. I am unable to obtain significant history from the patient. Most of the history is taken from my discussion with staff as well as review of the chart. The previous CT scan showed cerebral atrophy and old left internal capsule lacunar infarct also. No chest pain. No palpitations. PAST MEDICAL HISTORY: 1. History of atrial fibrillation. 2. CAD. 3. CVA, TIA. 4. Hypertension. 5. History of deep brain stimulator. HOME MEDICATIONS: 1. Apresoline 50 mg p.o. t.i.d. 2. Coenzyme Q 100 mg p.o. daily. 3. Restoril 15 mg at bedtime. 4. MiraLAX 17 grams p.o. at bedtime p.r.n. 5. Velarde-3 one daily. 6. Benicar 40 mg p.o. daily. 7. Multivitamins 1 p.o. daily. 8. Metoprolol 25 mg b.i.d. 9. Meclizine 25 mg t.i.d. p.r.n. 10.Synthroid 25 mcg p.o. daily. 11.Culturelle. 12.Iron Complex. 13.Glucosamine/chondroitin daily. 14.Cartia XT 180 mg p.o. daily. 15.Cranberry 200 mg p.o. daily. 16.Plavix 75 mg p.o. daily. 17.Vitamin D3 2000 daily. 18.Sinemet 25/100 one p.o. t.i.d. 19.Astepro 1 spray b.i.d. ALLERGIES: 1. VICODIN. 2. AMANTADINE. 3. CATAPRES. 4. HYDROCODONE. 5. CORGARD. 6. MYSOLINE. 7. SULFONAMIDE ANTIBIOTICS. 8. TETRACYCLINE. FAMILY HISTORY: History of diabetes mellitus in the family. Social history and review of systems could not be taken at length because of the patient's change in mental status. PHYSICAL EXAMINATION: Patient is alert, oriented x1. Pulse 61, blood pressure 134/78, respirations 16, temperature 97.6, pulse ox 93% on room air. HEENT: Conjunctivae normal. Oral mucosa moist. Bruise over the left mandible present. NECK: No jugular venous distention. No carotid bruit. No lymph node enlargement. CARDIOVASCULAR SYSTEM: S1, S2 muffled. No S3. No S4. RESPIRATORY SYSTEM: Breath sounds diminished at the bases. A few scattered rhonchi. No crackles. ABDOMEN: Soft, non-tender. No mass palpable. No guarding or rigidity. Bowel sounds present. No ascites. LEGS: No edema. No swelling. NERVOUS SYSTEM: Higher functions as mentioned earlier. Moves all 4 limbs. Mild diffuse weakness. LYMPHATICS: No lymph node palpable in neck, axillae or groin. SKIN: No ulcer, rash, bleeding. JOINTS: No active deforming arthropathy. LABS: WBC 8.7, hemoglobin 13.2. Sodium 139, potassium 4.2. UA noted. ASSESSMENT: 1. Subacute diarrhea for evaluation with significant weakness and dehydration, present on admission. 2. History of falls, possibly from weakness and gait dysfunction. 3. Bruise on the left mandible. 4. 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 5. Metabolic encephalopathy, acute on chronic. 6. History of atrial fibrillation. 7. History of coronary artery disease. 8. History of cerebrovascular accident, transient ischemic attack. 9. Hypertension. 10.History of deep brain stimulator. 11.Gait dysfunction. 12.NO CODE, NO CPR, NO VENT. RECOMMENDATION AND DISCUSSION: In this 78-year-old woman who presented with multiple medical issues, we will continue to monitor closely. PT/OT evaluation. Otherwise, basic evaluation for the chronic diarrhea as well as gastroenterology consultation. Get a CT scan of the abdomen pelvis. A repeat CT of the brain also will be ordered along with a neurology consultation. The prognosis is extremely guarded because of multiple complex medical issues. Further recommendations to follow. A copy of this dictation is being forwarded to Dr. Gustavo Desai, who is the primary physician. MARTA / CHARLENE: [id number] /
--- NOTE | 2019-01-10 19:15 | CT ---
EXAMINATION TYPE: CT abdomen pelvis wo con DATE OF EXAM: 01/10/2019 COMPARISON: None HISTORY: diarrhea CT DLP: 269.9 mGycm Automated exposure control for dose reduction was used. TECHNIQUE: Helical acquisition of images was performed from the lung bases through the pelvis. FINDINGS: There is some patchy atelectasis at the posterior lung bases. Heart is slightly enlarged. There is no pleural effusion. There is no pericardial effusion. Liver shows no focal defect. Stomach is intact. Spleen appears normal. There is no evidence of pancre atic mass. There are large gallstones up to 2 cm. The bile ducts are not dilated. There is no adrenal mass. Kidneys have normal size. There is no hydronephrosis. Ureters are not dilat ed. There is no retroperitoneal adenopathy. Abdominal aorta is atheromatous. There are numerous diver ticula in the sigmoid colon. There is wall thickening and mild fat stranding around the sigmoid colon distally. There is no inguinal hernia. Bladder distends smoothly. There is hysterectomy. There is wall thickening of the mid descending colon also. There is mild fat stranding in this area a lso. There is a first-degree L3-4 spondylolisthesis. I see no compression fracture. There is L3-4 disc spa ce narrowing. There is no free air. There is no sign of a bowel obstruction. IMPRESSION: THERE IS MODERATE SIGMOID DIVERTICULOSIS. THERE IS EVIDENCE FOR MILD DIVERTICULITIS INVOLVING THE LOW ER DESCENDING COLON AND ALSO THE LOWER SIGMOID COLON. NO ABSCESS SEEN. AREA OF CHOLELITHIASIS. ATHERO SCLEROTIC VASCULAR DISEASE. MILD FIBROTIC CHANGES AND ATELECTASIS AT THE LUNG BASES.
--- NOTE | 2019-01-10 19:43 | CT ---
EXAMINATION TYPE: CT brain wo con DATE OF EXAM: 01/10/2019 COMPARISON: 07/12/2017 HISTORY: weakness CT DLP: 999.8 mGycm Automated exposure control for dose reduction was used. FINDINGS: There are bilateral thalamic implants. There is cerebral cortical atrophy. There is no mass effect no r midline shift. There is no sign of intracranial hemorrhage. The calvarium is intact. There is hypod ensity in the white matter around the frontal horns of the lateral ventricles. Unchanged. IMPRESSION: PREVIOUS SURGERY. CEREBRAL ATROPHY AND CHRONIC SMALL VESSEL ISCHEMIA. NO CHANGE COMPARED TO OLD EXAM.
[2019-01-10 21:14] LABS: Hepatitis A Antibody IgM Non-Reactive (Non-Reactive); Hepatitis B Core IgM Non-Reactive (Non-Reactive); Hepatitis B Surface Antigen Non-Reactive (Non-Reactive); Hepatitis C IgG Antibody Non-Reactive (Non-Reactive)
[2019-01-10] MEDS: DULoxetine HCL 30 MG CAPSULE.DR PO SCH (21:41)
[2019-01-10] MEDS: TEMAZEPAM 15 MG CAP PO SCH (21:41)
[2019-01-10] MEDS: AZELASTINE 137MCG/SPRAY NASAL SCH (21:42)
[2019-01-11] MEDS: LEVOTHYROXINE 25 MCG TAB PO SCH (06:23)
[2019-01-11] MEDS: NON FORMULARY DRUG (Omega-3 Fatty Acids [Omega-3] 1,000 MG) PO SCH (07:12)
[2019-01-11] MEDS: NON FORMULARY DRUG (Ubidecarenone [Co Q-10] 100 MG) PO SCH (07:12)
[2019-01-11] MEDS: hydrALAZINE HCL 50 MG TAB PO SCH ×3 (07:16→21:24)
[2019-01-11] MEDS: METOPROLOL TARTRATE 25 MG TAB PO SCH ×2 (07:16→21:24)
[2019-01-11] MEDS: CHOLECALCIFEROL 1,000 UNIT TAB PO SCH (07:16)
[2019-01-11] MEDS: CARBIDOPA-LEVODOPA 25-100 MG 1 EACH TAB PO SCH ×3 (07:17→21:25)
[2019-01-11] MEDS: MULTIVITAMINS, THERA 1 EACH TAB PO SCH (07:17)
[2019-01-11] MEDS: SODIUM CHLORIDE 0.9% 1,000 ML IV SCH (07:17)
[2019-01-11] MEDS: DILTIAZEM CD 180 MG CAP.ER.24H PO SCH (07:17)
[2019-01-11] MEDS: CLOPIDOGREL 75 MG TAB PO SCH (07:17)
[2019-01-11] MEDS: AZELASTINE 137MCG/SPRAY NASAL SCH ×2 (07:17→21:25)
[2019-01-11 09:13] LABS: Basophils % (A) 1 %; Eosinophils # (A) 0.2 k/uL (0-0.7); Eosinophils % (A) 2 %; HCT 38.2 % (34.0-46.0); HGB 11.7 gm/dL (11.4-16.0); Hypochromasia Slight; Lymphocytes # (A) 1.8 k/uL (1.0-4.8); Lymphocytes % (A) 20 %; MCH 30.5 pg (25.0-35.0); MCHC 30.7 g/dL (31.0-37.0); MCV 99.4 fL (80.0-100.0); Mean Platelet Volume 6.5; Monocytes # (A) 0.6 k/uL (0-1.0); Monocytes % (A) 6 %; Neutrophils # (A) 6.1 k/uL (1.3-7.7); Neutrophils % (A) 69 %; Platelet Count 294 k/uL (150-450); RBC 3.84 m/uL (3.80-5.40); RDW 13.3 % (11.5-15.5); WBC 8.8 k/uL (3.8-10.6)
[2019-01-11 09:23] LABS: Calcium 9.2 mg/dL (8.4-10.2); Potassium 4.2 mmol/L (3.5-5.1); Total Bilirubin 0.5 mg/dL (0.2-1.3); Total Protein 6.1 g/dL (6.3-8.2)
[2019-01-11] MEDS ORDERED: PIPERACILLIN-TAZOBACTAM 3.375 GM in SODIUM CHLORIDE 0.9% 100 ML IVPB SCH (10:15)
[2019-01-11] MEDS: PIPERACILLIN-TAZOBACTAM 3.375 GM in SODIUM CHLORIDE 0.9% 100 ML IVPB SCH ×2 (10:58→19:29)
--- NOTE | 2019-01-11 12:32 | P.CNNES ---
History of Present Illness Consult date: 01/11/19 Reason for Consult: Weakness Chief complaint: Generalized weakness from having watery diarrhea History of Present Illness: HISTORY OF PRESENT ILLNESS: Thank you for allowing me to evaluate Ms. Cecelia Chau. Ms. Chau is an 78-year-old woman with past medical history of atrial fibrillation, coronary artery disease, chest pain, stroke (was found on MRI when she got it done in 2012 before DBS placement), hypertension, deep brain stimulator, hypothyroidism, presenting [facility] for weakness. Patient states that she's been having watery diarrhea for the last 2 weeks, and since then, she's experienced increased generalized weakness. She had her DBS placed in 2012, before which she got a surveillance MRI brain, and at that time, she was told that she had a stroke, but patient is not aware of the actual location of it. Patient with history of atrial fibrillation, EKG showing premature superventricular complexes, with p-waves. Patient denies any headache, nausea, vomiting, focal weakness, numbness or tingling, double/blurry vision. Patient denies ever having weakness, numbness, and going, vision deficits in the past. PAST MEDICAL HISTORY: Atrial fibrillation, coronary artery disease, chest pain, stroke (was found on MRI when she got it done in 2012 before DBS placement), Hypertension, deep brain stimulator, hypothyroidism PAST SURGICAL HISTORY: Appendectomy, hysterectomy, tonsillectomy, sinus surgery HOME MEDICATIONS: Vitamin D3, Co Q-10, omega-3, multivitamin, metoprolol, meclizine, temazepam, Plavix, Synthroid, hydralazine, olmesartan,. Diltiazem, duloxetine, carbidopa levodopa ALLERGIES: This is a thin, amantadine, clonidine, hydrocodone, nadolol, primidone, sulfa, tetracyclines SOCIAL HISTORY: Never smoker. REVIEW OF SYSTEMS: The 14 systems are reviewed and no additional points are identified compared to the review of systems documented history and physical PHYSICAL EXAMINATION: VITAL SIGNS: T 98.1 HR 62 RR 16 BP 167/71 O2 sat 94% on RA GEN.: NAD, pleasant and cooperative HEENT: NCAT, sclera without icterus NECK: Supple SKIN AND EXTREMITIES: Warm to touch, no edema NEURO: MENTAL STATUS: Patient alert and oriented to self, place, time. Able to name the current president. Speech fluent but slightly slurred (which is not new to the patient. Her speech improves after patient takes a sip water), able to name and repeat, following all commands readily. No right and left disorientation, neglect. CRANIAL NERVES II THROUGH XII: II: Pupils are equal and reactive to light symmetrically. No afferent pupillary defect. Visual mccauley are intact. III, IV, : No ptosis. Extraocular movements full. No nystagmus. V: Facial sensation intact from V1-3. VII. No clear facial asymmetry. VIII: Hearing intact to finger rub bilaterally. IX, X: Symmetric palate elevation. XI: Shoulder shrug intact. XII: Tongue midline without fasciculation or atrophy. MOTOR: Increased tone bilateral upper extremity and lower extremities with mild cogwheeling. Resting tremor more in the left upper extremity than right. Action tremor also present. Strength is 4+/5 throughout all 4 extremities. SENSORY: Intact to light touch in all 4 extremities. REFLEXES: 2+ throughout. Toes are downgoing. No clonus. Damon's is absent COORDINATION: Finger to nose intact but with action tremor. No dysmetria. Rapid alternating movements with slowed speed and decreased accuracy. GAIT: Deferred due to generalized weakness DIAGNOSTIC TESTING: LABORATORY: WBC 8.8 hemoglobin 11.7 platelets 294 sodium 137 potassium 4.2 chloride 103 bicarb 29 BUN 12 crit 0.85 glucose 96 AST 21 ALT 13 alk phos 44 urinalysis small leuk esterase, 11 WBC IMAGING: CT head without contrast 01/10/2019: Previous surgery (DBS in bilateral thalamus). Cerebral atrophy and chronic small vessel ischemia. Ex-vacuo ventromegaly. No change compared to old exam. ASSESSMENT: Ms. Chau is an 78-year-old woman with past medical history of atrial fibrillation, coronary artery disease, chest pain, stroke (was found on MRI when she got it done in 2012 before DBS placement), hypertension, deep brain stimulator, hypothyroidism, presenting [facility] for weakness. There is no concern for focality on exam. However patient states that she has a history of atrial fibrillation along with MRI brain finding of a stroke previously. Patient's CHADs-VASC score is at least 6, which puts patient's risk of stroke moderate high. Patient at this time is only on Plavix. Patient has an outpatient neurologist that manages her Parkinson's medications. She states that her tremor has gotten worse recently although it had improved after the DBS placement. Patient unfortunately has been getting worse overall after the surgery. Patient was found with diverticulitis, being started on antibiotics. Patient's current episode of generalized weakness most likely due to underlying acute infection. RECOMMENDATIONS: 1. Cardiology consult for confirmation of diagnosis of atrial fibrillation patient will need to be on anticoagulation for stroke prevention. Will place patient on telemetry. 2. Continue with Plavix for now. 3. Continue with current dosing of Sinemet 25-100 1 pill TID 4. Infection management per primary team. 5. Neurology will sign off at this time. Please feel free to contact Neurology again if with additional questions or concerns. 6. Patient was in outpatient neurology appointment in February 2019. Past Medical History Past Medical History: Atrial Fibrillation, Coronary Artery Disease (CAD), Chest Pain / Angina, CVA/TIA, Hypertension Additional Past Medical History / Comment(s): deep brain stimulator History of Any Multi-Drug Resistant Organisms: None Reported Past Surgical History: Appendectomy, Hysterectomy, Tonsillectomy Additional Past Surgical History / Comment(s): sinus surg Past Anesthesia/Blood Transfusion Reactions: Postoperative Nausea & Vomiting (PONV) Past Psychological History: No Psychological Hx Reported Smoking Status: Never smoker Past Alcohol Use History: None Reported Past Drug Use History: None Reported - Past Family History Mother Family Medical History: Diabetes Mellitus Medications and Allergies Home Medications Medication Instructions Recorded Confirmed Type Azelastine HCl [Astepro] 1 spray NASAL BID 07/03/18 01/09/19 History Cholecalciferol (Vitamin D3) 2,000 unit PO DAILY 07/03/18 01/09/19 History [Vitamin D3] Clopidogrel Bisulfate [Plavix] 75 mg PO DAILY 07/03/18 01/09/19 History Cranberry Fruit Extract [Cranberry] 200 mg PO DAILY 07/03/18 01/09/19 History Levothyroxine Sodium [Synthroid] 25 mcg PO DAILY 07/03/18 01/09/19 History Meclizine HCl 25 mg PO TID PRN 07/03/18 01/09/19 History Metoprolol Tartrate 25 mg PO BID 07/03/18 01/09/19 History Multivitamins, Thera [Multivitamin 1 tab PO DAILY 07/03/18 01/09/19 History (formulary)] [place]-3 Fatty Acids [[place]-3] 1,000 mg PO DAILY 07/03/18 01/09/19 History Polyethylene Glycol 3350 [Miralax] 17 gm PO HS PRN 07/03/18 01/09/19 History Temazepam [Restoril] 15 mg PO HS 07/03/18 01/09/19 History Ubidecarenone [Co Q-10] 100 mg PO DAILY 07/03/18 01/09/19 History hydrALAZINE HCL [Apresoline] 50 mg PO TID #90 tab 07/05/18 01/09/19 Rx Diltiazem HCl [Cartia Xt] 180 mg PO DAILY 09/15/18 01/09/19 History L. Rhamnosus GG/Inulin [Culturelle 1 cap PO DAILY 09/15/18 01/09/19 History Probiotics Capsule] Olmesartan Medoxomil [Benicar] 40 mg PO DAILY 09/15/18 01/09/19 History Carbidopa-Levodopa 25-100 mg 1 tab PO TID 01/09/19 01/09/19 History [Sinemet 25-100] DULoxetine HCL [Cymbalta] 30 mg PO HS 01/09/19 01/09/19 History Glucosam/Yobani-Msm1/C/Mannie/Bosw 1 tab PO DAILY 01/09/19 01/09/19 History [Glucosamine-Chondroitin Tablet] Iron Complex 1 tab PO MOFR 01/09/19 01/09/19 History Allergies Allergy/AdvReac Type Severity Reaction Status Date / Time acetaminophen [From Vicodin] Allergy Verified 01/09/19 22:12 amantadine Allergy Verified 01/09/19 22:12 clonidine [From Catapres] Allergy Verified 01/09/19 22:12 hydrocodone Allergy Verified 01/09/19 22:12 nadolol [From Corgard] Allergy Verified 01/09/19 22:12 primidone [From Mysoline] Allergy Verified 01/09/19 22:12 Sulfa (Sulfonamide Allergy Verified 01/09/19 22:12 Antibiotics) Tetracyclines Allergy Verified 01/09/19 22:12 Physical Examination - Vital Signs Vital Signs: Vital Signs Temp Pulse Pulse Resp BP Pulse Ox 01/11/19 07:14 98.1 F 62 16 167/71 94 L 01/11/19 00:00 15 01/10/19 22:27 97.8 F 75 15 155/74 96 01/10/19 16:00 16 01/10/19 12:16 97.6 F 61 16 134/78 93 L Intake and Output 01/10/19 01/11/19 01/11/19 22:59 06:59 14:59 Intake Total 100 Balance 100 Intake: Oral 100 Other: Voiding Method Incontinent # Voids 5 2 # Bowel Movements 5 0 Results - Laboratory Findings CBC and BMP: 01/11/19 08:13 01/11/19 08:13 Abnormal Lab Findings: Abnormal Labs 01/09/19 01/09/19 01/10/19 21:39 22:30 08:39 MCHC 29.9 L Sodium 135 L Glucose 123 H Total Protein Albumin Urine Ketones Trace H Ur Leukocyte Esterase Small H Urine RBC 9 H Urine WBC 11 H Urine Bacteria Rare H Urine Mucus Rare H 01/10/19 01/11/19 01/11/19 08:39 08:13 08:13 MCHC 30.7 L Sodium Glucose 116 H Total Protein 6.1 L Albumin 3.4 L 3.0 L Urine Ketones Ur Leukocyte Esterase Urine RBC Urine WBC Urine Bacteria Urine Mucus
--- NOTE | 2019-01-11 14:57 | P.CONS ---
History of Present Illness - Reason for Consult Consult date: 01/10/19 Diarrhea Requesting physician: Jairon Reyes - Chief Complaint Diarrhea - History of Present Illness 78-year-old female who has a past medical history significant for hypothyroidism, hypertension, coronary artery disease, Parkinson's disease and vertigo who presents to the hospital due to complaints of loose stool. The patient reports that she has had 2 weeks of loose bowel movements. She reports that the bowel movements are loose and predominantly occurring at night. She denies any daytime symptoms. No blood per rectum reported. No prior episodes of similar symptoms or abdominal pain in association with the symptoms. She denies any sick contacts, recent antibiotic therapy or new medications prior to the symptoms. She believes her last colonoscopy was 5 years ago at [facility] was performed for bleeding with the thought at that time that her symptoms were either due to hemorrhoids or diverticulosis. On presentation to the bilirubin 0.5, alkaline phosphatase 43, AST 19 and MALT 11. Lipase was normal at 73, hemoglobin 13.2, WBC 8.7, platelet count 364,000, x-ray of the abdomen was negative. Review of Systems Constitutional: Denies any change in weight, but is fatigued Eyes: Denies any change in vision, pain denies Nose: Denies any congestion, rhinorrhea Ears: Denies any change in hearing, new onset tinnitus Lungs: Denies any wheezing, shortness of breath, cough, or hemoptysis Cardiac: Denies any pain in chest, shortness of breath, lower extremity swelling Abdomen: As per history of present illness Skin: Denies any new rashes or pruritus Urine: Denies any dysuria or hematuria Neuro: Denies any change in mental status, new focal deficits, but has histroy of Parkinson's disease Past Medical History Past Medical History: Atrial Fibrillation, Coronary Artery Disease (CAD), Chest Pain / Angina, CVA/TIA, Hypertension Additional Past Medical History / Comment(s): deep brain stimulator History of Any Multi-Drug Resistant Organisms: None Reported Past Surgical History: Appendectomy, Hysterectomy, Tonsillectomy Additional Past Surgical History / Comment(s): sinus surg Past Anesthesia/Blood Transfusion Reactions: Postoperative Nausea & Vomiting (PONV) Past Psychological History: No Psychological Hx Reported Smoking Status: Never smoker Past Alcohol Use History: None Reported Past Drug Use History: None Reported - Past Family History Mother Family Medical History: Diabetes Mellitus Medications and Allergies Home Medications Medication Instructions Recorded Confirmed Type Azelastine HCl [Astepro] 1 spray NASAL BID 07/03/18 01/09/19 History Cholecalciferol (Vitamin D3) 2,000 unit PO DAILY 07/03/18 01/09/19 History [Vitamin D3] Clopidogrel Bisulfate [Plavix] 75 mg PO DAILY 07/03/18 01/09/19 History Cranberry Fruit Extract [Cranberry] 200 mg PO DAILY 07/03/18 01/09/19 History Levothyroxine Sodium [Synthroid] 25 mcg PO DAILY 07/03/18 01/09/19 History Meclizine HCl 25 mg PO TID PRN 07/03/18 01/09/19 History Metoprolol Tartrate 25 mg PO BID 07/03/18 01/09/19 History Multivitamins, Thera [Multivitamin 1 tab PO DAILY 07/03/18 01/09/19 History (formulary)] [place]-3 Fatty Acids [[place]-3] 1,000 mg PO DAILY 07/03/18 01/09/19 History Polyethylene Glycol 3350 [Miralax] 17 gm PO HS PRN 07/03/18 01/09/19 History Temazepam [Restoril] 15 mg PO HS 07/03/18 01/09/19 History Ubidecarenone [Co Q-10] 100 mg PO DAILY 07/03/18 01/09/19 History hydrALAZINE HCL [Apresoline] 50 mg PO TID #90 tab 07/05/18 01/09/19 Rx Diltiazem HCl [Cartia Xt] 180 mg PO DAILY 09/15/18 01/09/19 History L. Rhamnosus GG/Inulin [Culturelle 1 cap PO DAILY 09/15/18 01/09/19 History Probiotics Capsule] Olmesartan Medoxomil [Benicar] 40 mg PO DAILY 09/15/18 01/09/19 History Carbidopa-Levodopa 25-100 mg 1 tab PO TID 01/09/19 01/09/19 History [Sinemet 25-100] DULoxetine HCL [Cymbalta] 30 mg PO HS 01/09/19 01/09/19 History Glucosam/Yobani-Msm1/C/Mannie/Bosw 1 tab PO DAILY 01/09/19 01/09/19 History [Glucosamine-Chondroitin Tablet] Iron Complex 1 tab PO MOFR 01/09/19 01/09/19 History Allergies Allergy/AdvReac Type Severity Reaction Status Date / Time acetaminophen [From Vicodin] Allergy Verified 01/09/19 22:12 amantadine Allergy Verified 01/09/19 22:12 clonidine [From Catapres] Allergy Verified 01/09/19 22:12 hydrocodone Allergy Verified 01/09/19 22:12 nadolol [From Corgard] Allergy Verified 01/09/19 22:12 primidone [From Mysoline] Allergy Verified 01/09/19 22:12 Sulfa (Sulfonamide Allergy Verified 01/09/19 22:12 Antibiotics) Tetracyclines Allergy Verified 01/09/19 22:12 Physical Exam Vitals: Vital Signs Temp Pulse Pulse Pulse Resp BP BP 01/10/19 22:27 97.8 F 75 15 155/74 01/10/19 16:00 16 01/10/19 12:16 97.6 F 61 16 134/78 01/10/19 08:00 18 01/10/19 05:20 97.8 F 118 H 18 135/81 01/10/19 02:04 97.7 F 119 H 18 155/90 01/10/19 01:19 104 H 16 148/89 01/10/19 00:50 116 H 18 158/92 01/10/19 00:22 96 18 158/90 01/10/19 00:06 85 18 154/112 Pulse Ox 01/10/19 22:27 96 01/10/19 16:00 01/10/19 12:16 93 L 01/10/19 08:00 01/10/19 05:20 94 L 01/10/19 02:04 93 L 01/10/19 01:19 97 01/10/19 00:50 97 01/10/19 00:22 97 01/10/19 00:06 98 Intake and Output 01/10/19 01/10/19 01/10/19 06:59 14:59 22:59 Intake Total 360 Output Total 410 Balance -410 360 Intake: Oral 360 Output: Urine 410 Other: # Voids 1 5 # Bowel Movements 5 Constitutional: Lying in bed in no apparent distress Head: normocephalic/atraumatic Eyes: No icterus, no injection Mouth: Moist mucous membranes Nose: No discharge noted Neck: Trachea midline Lungs: Normal air entry in all lung mccauley, no wheezing appreciated Abdomen: Soft, nontender, nondistended, normal bowel sounds. No guarding or rigidity Skin: No rashes, no jaundice Neuro: Awake alert and oriented 3 Results CBC & Chem 7: 01/11/19 08:13 01/11/19 08:13 Labs: Abnormal Lab Results - Last 24 Hours (Table) 01/09/19 01/10/19 01/10/19 Range/Units 22:30 08:39 08:39 MCHC 29.9 L (31.0-37.0) g/dL Glucose 116 H (74-99) mg/dL Albumin 3.4 L (3.5-5.0) g/dL Urine Ketones Trace H (Negative) Ur Leukocyte Esterase Small H (Negative) Urine RBC 9 H (0-5) /hpf Urine WBC 11 H (0-5) /hpf Urine Bacteria Rare H (None) /hpf Urine Mucus Rare H (None) /hpf Microbiology - Last 24 Hours (Table) 01/09/19 22:30 Urine Culture - Preliminary Urine,Voided Abdominal x-ray: report reviewed (No acute findings on abdominal XR) Assessment and Plan (1) Diverticulitis large intestine w/o perforation or abscess w/o bleeding Narrative/Plan: 78-year-old female who has a past medical history significant for hypothyroid ism, hypertension, coronary artery disease, Parkinson's disease and vertigo who presents to the hospital due to complaints of loose stool. Symptoms occurring nightly with no blood per rectum reported in last colonoscopy approximately 5 years ago at which time she did have rectal bleeding felt to be diverticular or hemorrhoidal in nature. No associated abdominal pain, nausea or vomiting. Initial x-ray abdomen was negative but CT of the abdomen was suspicious for diverticulitis for which the patient is currently receiving antibiotic therapy. Stool studies negative to date except for elevated lactoferrin which is consistent with findings of diverticulitis. Current Visit: Yes Status: Acute Code(s): K57.32 - DVTRCLI OF LG INT W/O PERFORATION OR ABSCESS W/O BLEEDING SNOMED Code(s): 9402543 (2) Diarrhea Current Visit: Yes Status: Acute Code(s): R19.7 - DIARRHEA, UNSPECIFIED SN OMED Code(s): 38723973 Plan: Supportive care Okay for liquids, advance to low fiber as tolerated Continue Zosyn therapy Stool studies reviewed Imaging reviewed Would recommend colonoscopy in 4-6 weeks for further evaluation if patient is medically stable and agreeable Thank you for allowing us to participate in the care of the patient we will co noel to follow
--- NOTE | 2019-01-11 17:54 | PN ---
PROGRESS NOTE DATE OF SERVICE: 01/11/2019 This 78-year-old woman who was admitted with subacute diarrhea was complaining of weakness also. The patient had some dehydration. The patient had a brain CT scan yesterday which showed bilateral thalamic implants, and CT scan of the abdomen and pelvis showed moderate sigmoid diverticulosis with possible mild diverticulitis. Neurology has evaluated the patient for the weakness and recommended continued anticoagulation, Plavix. No chest pain. No palpitations. No fever. On exam, alert and oriented x3. Pulse is 62, blood pressure 167/71, respiration 16, temperature 98.1, pulse ox 94% on room air. HEENT: Conjunctivae normal. NECK: No jugular venous distention. CARDIOVASCULAR SYSTEM: S1, S2 muffled. No S3. No S4. RESPIRATORY SYSTEM: Breath sounds diminished at the bases. No rhonchi. No crackles. ABDOMEN: Soft, non-tender. No mass palpable. LEGS: No edema. No swelling. NERVOUS SYSTEM: Mild diffuse weakness. LABS: WBC 8.2, hemoglobin 11.7, albumin 3.3. Stool WBC is positive. Other stool tests, including C difficile, are negative. ASSESSMENT: 1. Subacute diarrhea; possible acute diverticulitis. 2. Severe dehydration, present on admission. 3. History of falls and weakness and gait dysfunction. 4. Atrial fibrillation. 5. Bruise on the left mandible. 6. 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 7. Metabolic encephalopathy, acute on chronic. 8. History of coronary artery disease. 9. History of cerebrovascular incident, transient ischemic attack. 10.Hypertension. 11.History of deep brain stimulator, bilateral thalamic. 12.Gait dysfunction. 13.NO CODE, NO CPR, NO VENT. RECOMMENDATIONS AND DISCUSSION: In this 78-year-old woman who presented with multiple complex medical issues, at this time I recommend to continue current management, continue with symptomatic treatment. CT scan results noted. I would recommend a course of broad-spectrum IV antibiotics as well as gastroenterology consultation. Neurology consultation and cardiology consultation have been noted. Guarded prognosis because of multiple complex medical issues. I would also recommend PT/OT evaluation. If the patient is not safe or is found to have significant weakness, ECF rehab may be an option. The overall prognosis is guarded. Discussed with the patient, who understands and agrees. Patient remains NO CODE. See orders for further details. MMODL / IJN: [id number] /
[2019-01-11] MEDS: TEMAZEPAM 15 MG CAP PO SCH (21:24)
[2019-01-11] MEDS: DULoxetine HCL 30 MG CAPSULE.DR PO SCH (21:29)
[2019-01-12] MEDS: PIPERACILLIN-TAZOBACTAM 3.375 GM in SODIUM CHLORIDE 0.9% 100 ML IVPB SCH ×3 (02:01→17:14)
[2019-01-12] MEDS: SODIUM CHLORIDE 0.9% 1,000 ML IV SCH ×2 (02:01→17:20)
[2019-01-12] MEDS ORDERED: hydrALAZINE HCL 20 MG/ML 1 ML VIAL IVP PRN (04:19)
[2019-01-12] MEDS ORDERED: hydrALAZINE HCL 20 MG/ML 1 ML VIAL ONE (05:45)
[2019-01-12] MEDS: LEVOTHYROXINE 25 MCG TAB PO SCH (05:59)
[2019-01-12 07:07] LABS: Basophils % (A) 0 %; Eosinophils # (A) 0.3 k/uL (0-0.7); Eosinophils % (A) 3 %; HCT 38.1 % (34.0-46.0); HGB 12.4 gm/dL (11.4-16.0); Lymphocytes # (A) 1.6 k/uL (1.0-4.8); Lymphocytes % (A) 18 %; MCH 30.8 pg (25.0-35.0); MCHC 32.5 g/dL (31.0-37.0); MCV 94.8 fL (80.0-100.0); Mean Platelet Volume 5.7; Monocytes # (A) 0.6 k/uL (0-1.0); Monocytes % (A) 7 %; Neutrophils % (A) 69 %; Platelet Count 312 k/uL (150-450); RBC 4.02 m/uL (3.80-5.40); RDW 13.3 % (11.5-15.5); WBC 8.7 k/uL (3.8-10.6)
[2019-01-12] MEDS: CLOPIDOGREL 75 MG TAB PO SCH (08:08)
[2019-01-12] MEDS: MULTIVITAMINS, THERA 1 EACH TAB PO SCH (08:08)
[2019-01-12] MEDS: hydrALAZINE HCL 50 MG TAB PO SCH ×3 (08:08→21:01)
[2019-01-12] MEDS: CHOLECALCIFEROL 1,000 UNIT TAB PO SCH (08:08)
[2019-01-12] MEDS: CARBIDOPA-LEVODOPA 25-100 MG 1 EACH TAB PO SCH ×3 (08:08→21:01)
[2019-01-12] MEDS: METOPROLOL TARTRATE 25 MG TAB PO SCH ×2 (08:08→21:01)
[2019-01-12] MEDS: DILTIAZEM CD 180 MG CAP.ER.24H PO SCH (08:09)
[2019-01-12] MEDS: AZELASTINE 137MCG/SPRAY NASAL SCH ×2 (08:09→21:02)
[2019-01-12] MEDS: NON FORMULARY DRUG (Ubidecarenone [Co Q-10] 100 MG) PO SCH (08:13)
[2019-01-12] MEDS: NON FORMULARY DRUG (Omega-3 Fatty Acids [Omega-3] 1,000 MG) PO SCH (08:13)
--- NOTE | 2019-01-12 09:00 | CDI ---
Documentation Clarification Form Date: 01/12/2019 8:50:52 AM From: Latonia Stephens RN, CCDS Admit Date: 01/11/2019 10:38:00 AM Patient Name: Cecelia Chau Visit Number: [id number] ATTENTION: The Clinical Documentation Specialists (CDI) and [facility] Coding Staff appreciate your assistance in clarifying documentation. Please respond to the clarification below the line at the bottom and electronically sign. The CDI & [facility] Coding staff will review the response and follow-up if needed. Please note: Queries are made part of the Legal Health Record. If you have any questions, please contact the author of this message via ITS. Dr. Jairon Reyes Atrial Fibrillation is documented in the H&P and Progress note and requires further specifity. History/Risk Factors: Atrial Fib, hypothyroidism, HTN, CAD, Parkinsons Clinical Indicators: 01/11 Neurology Consult: "However patient states that she has a history of atrial fibrillation along with MRI brain finding of a stroke previously. RECOMMENDATIONS: Cardiology consult for confirmation of diagnosis of atrial fibrillation patient will need to be on anticoagulation for stroke prevention." EKG/telemetry: remote telemetry ordered- SR w/ 1st degree block Treatment: Cardizem CD 180 mg QD Plavix 75 mg PO QD Lopressor 25 mg PO BID Remote Telemetry monitoring ordered In your professional opinion, can you please clarify the type of Atrial Fibrillation, if known? Chronic/Permanent Paroxysmal Persistent Other, please specify Unable to determine (Last Revision: July 2017) Paroxysmal MTDD
--- NOTE | 2019-01-12 14:29 | P.CRDCN ---
History of Present Illness History of present illness: This is a pleasant 78-year-old female past medical history significant for paroxysmal atrial fibrillation, hypertension, CVA, Parkinson's disease and deep brain stimulator implant. She denies prior history of coronary artery disease. She follows with Dr. Fernández out of [facility] for cardiology. We have been asked to see her in consultation from neurology for evaluation of a-fib. The patient was brought to the hospital with ongoing diarrhea x2 weeks with progressively worsening weakness. She denies symptoms of chest pain, shortness of breath, dizziness or palpitations. She states at times when she gets agitated she will feel her heart rate but this has not been happening lately. Currently she is maintained on plavix 75 mg daily for unclear reason. She states she is on this for a-fib, however this is not an appropriate indication. She is quite adament that she does not have coronary artery disease or any prior stents in place. She is also on hydralazine 50 mg TID, lopressor 25 mg BID, cartia xt 180 mg daily. Most recent echocardiogram obtained 07/2018 reveals preserved LV systolic function with ejection fraction 55-60%, moderately dilated left atrium, mild mitral regurgitation, mild tricuspid regurgitation and mild pulmonary hypertension with an RVSP of 45 mmHg. EKG reveals sinus mechanism with T-wave inversions in the lateral leads. Consistent with previous EKG, no acute changes noted. Chest x-ray obtained on admission is evident of mild interstitial edema. Laboratory data reviewed, CBC unremarkable, sodium 137, potassium 4.2, creatinine 0.85, cardiac enzymes negative 1. At the time of my exam: CONSTITUTIONAL: Denies fever. Denies chills. EYES: Denies blurred vision. Denies vision changes. Denies eye pain. EARS, NOSE, MOUTH & THROAT: Denies headache. Denies sore throat. Denies ear pain. CARDIOVASCULAR: Denies chest pain. Denies shortness of breath. Denies orthopnea. Denies PND. Denies palpitations. RESPIRATORY: Denies cough. GASTROINTESTINAL: Denies abdominal pain. Denies diarrhea. Denies constipation. Denies nausea. Denies vomiting. MUSCULOSKELETAL: Denies myalgias. INTEGUMENTARY: Denies pruitis. Denies rash. NEUROLOGIC: Denies numbness. Denies tingling. Denies weakness. PSYCHIATRIC: Denies anxiety. Denies depression. ENDOCRINE: Denies fatigue. Denies weight change. Denies polydipsia. Denies polyurina. GENITOURINARY: Denies burning, hematuria or urgency with micturation. HEMATOLOGIC: Denies history of anemia. Denies bleeding. GENERAL: This is a 78-year-old patient female in no apparent distress at the time of my examination. HEENT: Head is atraumatic, normocephalic. Pupils are equal, round. Sclerae anicteric. Conjunctivae are clear. Mucous membranes of the mouth are moist. Neck is supple. There is no jugular venous distention. No carotid bruit is heard. LUNGS: Clear to auscultation no wheezes, rales or rhonchi. No chest wall tenderness is noted on palpation or with deep breathing. HEART: Regular rate and rhythm with systolic ejection murmur at the base, no rubs or gallops. S1 and S2 heard. ABDOMEN: Soft, nontender. Bowel sounds are heard. No organomegaly noted. EXTREMITIES: No evidence of peripheral edema and no calf tenderness noted. VASCULAR: Radial and dorsalis pedis pulses palpated, no evidence of clubbing. NEUROLOGIC: Patient is awake, alert and oriented x3. ASSESSMENT Stated history of paroxysmal atrial fibrillation on long-term anticoagulation for unknown reason Diarrhea and weakness with dehydration History of Parkinson's disease Deep brain stimulator in place History of CVA Hypertension PLAN Records have been requested from her primary compliance coordinator for review. Recommend outpatient event monitoring on discharge. Discontinue plavix as this is not providing thromboembolic protection. Thank you kindly for this consultation. Nurse Practitioner note has been reviewed, I agree with a documented findings and plan of care. Patient was seen and examined. Past Medical History Past Medical History: Atrial Fibrillation, Coronary Artery Disease (CAD), Chest Pain / Angina, CVA/TIA, Hypertension Additional Past Medical History / Comment(s): deep brain stimulator History of Any Multi-Drug Resistant Organisms: None Reported Past Surgical History: Appendectomy, Hysterectomy, Tonsillectomy Additional Past Surgical History / Comment(s): sinus surg Past Anesthesia/Blood Transfusion Reactions: Postoperative Nausea & Vomiting (P ONV) Past Psychological History: No Psychological Hx Reported Smoking Status: Never smoker Past Alcohol Use History: None Reported Past Drug Use History: None Reported - Past Family History Mother Family Medical History: Diabetes Mellitus Medications and Allergies Home Medications Medication Instructions Recorded Confirmed Type Azelastine HCl [Astepro] 1 spray NASAL BID 07/03/18 01/09/19 History Cholecalciferol (Vitamin D3) 2,000 unit PO DAILY 07/03/18 01/09/19 History [Vitamin D3] Clopidogrel Bisulfate [Plavix] 75 mg PO DAILY 07/03/18 01/09/19 History Cranberry Fruit Extract [Cranberry] 200 mg PO DAILY 07/03/18 01/09/19 History Levothyroxine Sodium [Synthroid] 25 mcg PO DAILY 07/03/18 01/09/19 History Meclizine HCl 25 mg PO TID PRN 07/03/18 01/09/19 History Metoprolol Tartrate 25 mg PO BID 07/03/18 01/09/19 History Multivitamins, Thera [Multivitamin 1 tab PO DAILY 07/03/18 01/09/19 History (formulary)] Portsmouth-3 Fatty Acids [Portsmouth-3] 1,000 mg PO DAILY 07/03/18 01/09/19 History Polyethylene Glycol 3350 [Miralax] 17 gm PO HS PRN 07/03/18 01/09/19 History Temazepam [Restoril] 15 mg PO HS 07/03/18 01/09/19 History Ubidecarenone [Co Q-10] 100 mg PO DAILY 07/03/18 01/09/19 History hydrALAZINE HCL [Apresoline] 50 mg PO TID #90 tab 07/05/18 01/09/19 Rx Diltiazem HCl [Cartia Xt] 180 mg PO DAILY 09/15/18 01/09/19 History L. Rhamnosus GG/Inulin [Culturelle 1 cap PO DAILY 09/15/18 01/09/19 History Probiotics Capsule] Olmesartan Medoxomil [Benicar] 40 mg PO DAILY 09/15/18 01/09/19 History Carbidopa-Levodopa 25-100 mg 1 tab PO TID 01/09/19 01/09/19 History [Sinemet 25-100] DULoxetine HCL [Cymbalta] 30 mg PO HS 01/09/19 01/09/19 History Glucosam/Yobani-Msm1/C/Mannie/Bosw 1 tab PO DAILY 01/09/19 01/09/19 History [Glucosamine-Chondroitin Tablet] Iron Complex 1 tab PO MOFR 01/09/19 01/09/19 History Allergies Allergy/AdvReac Type Severity Reaction Status Date / Time acetaminophen [From Vicodin] Allergy Verified 01/09/19 22:12 amantadine Allergy Verified 01/09/19 22:12 clonidine [From Catapres] Allergy Verified 01/09/19 22:12 hydrocodone Allergy Verified 01/09/19 22:12 nadolol [From Corgard] Allergy Verified 01/09/19 22:12 primidone [From Mysoline] Allergy Verified 01/09/19 22:12 Sulfa (Sulfonamide Allergy Verified 01/09/19 22:12 Antibiotics) Tetracyclines Allergy Verified 01/09/19 22:12 Physical Exam Vitals: Vital Signs Temp Pulse Pulse Resp BP Pulse Ox 01/12/19 07:56 97.9 F 66 16 178/77 95 01/12/19 05:43 76 203/95 01/12/19 03:44 18 01/12/19 02:00 200/95 01/12/19 01:51 97.7 F 63 18 199/78 95 01/12/19 00:10 18 01/11/19 20:15 18 01/11/19 18:53 97.8 F 66 18 185/72 96 01/11/19 15:58 97.6 F 62 12 195/77 97 01/11/19 13:06 98.1 F 65 16 171/77 96 Intake and Output 01/11/19 01/12/19 01/12/19 22:59 06:59 14:59 Intake Total 100 Output Total 1110 Balance -1010 Intake: Intake, IV Titration 100 Amount Piperacillin-Tazobactam 3 100 .375 gm In Sodium Chloride 0.9% 100 ml @ 25 mls/hr IVPB Q8H [facility] Rx#: [id number] Output: Urine 1110 Other: Voiding Method Incontinent Incontinent Incontinent # Voids 4 4 Results 01/12/19 06:29 01/11/19 08:13 CBC 01/12/19 Range/Units 06:29 WBC 8.7 (3.8-10.6) k/uL RBC 4.02 (3.80-5.40) m/uL Hgb 12.4 (11.4-16.0) gm/dL Hct 38.1 (34.0-46.0) % Plt Count 312 (150-450) k/uL Current Medications Generic Name Dose Route Start Last Admin Trade Name Freq PRN Reason Stop Dose Admin Azelastine HCl 1 spray 01/10/19 21:00 01/12/19 08:09 Astepro NASAL 1 spray BID [facility] Administration Carbidopa/Levodopa 1 each 01/10/19 09:00 01/12/19 08:08 Sinemet 25-100 PO 1 each TID [facility] Administration Cholecalciferol 2,000 unit 01/11/19 09:00 01/12/19 08:08 Vitamin D3 (25 Mcg = 1000 Iu) PO 2,000 unit DAILY [facility] Administration Clopidogrel Bisulfate 75 mg 01/10/19 09:00 01/12/19 08:08 Plavix PO 75 mg DAILY [facility] Administration Diltiazem HCl 180 mg 01/10/19 09:00 01/12/19 08:09 Cardizem Cd PO 180 mg DAILY [facility] Administration Duloxetine HCl 30 mg 01/10/19 21:00 01/11/19 21:29 Cymbalta PO 30 mg HS [facility] Administration Hydralazine HCl 50 mg 01/10/19 09:00 01/12/19 08:08 Apresoline PO 50 mg TID [facility] Administration Hydralazine HCl 10 mg 01/12/19 04:19 01/12/19 05:48 Apresoline IVP 10 mg Q6HR PRN Administration Hypertension Sodium Chloride 1,000 mls @ 60 mls/hr 01/09/19 23:45 01/12/19 02:01 Saline 0.9% IV 60 mls/hr .[id number] [facility] Administration Piperacillin Sod/Tazobactam 100 mls @ 25 mls/hr 01/11/19 10:15 01/12/19 10:23 Sod 3.375 gm/ Sodium Chloride IVPB 25 mls/hr Q8H [facility] Administration Levothyroxine Sodium 25 mcg 01/10/19 06:30 01/12/19 05:59 Synthroid PO 25 mcg DAILY@0630 [facility] Administration Meclizine HCl 25 mg 01/10/19 13:28 Antivert PO TID PRN Vertigo Metoprolol Tartrate 25 mg 01/10/19 09:00 01/12/19 08:08 Lopressor PO 25 mg BID [facility] Administration Multivitamins 1 each 01/11/19 09:00 01/12/19 08:08 Theragran PO 1 each DAILY [facility] Administration Naloxone HCl 0.2 mg 01/09/19 23:53 Narcan IV Q2M PRN Opioid Reversal Non-Formulary Medication 100 mg 01/11/19 09:00 01/12/19 08:13 Ubidecarenone [Co Q-10] PO Not Given DAILY [facility] Non-Formulary Medication 1,000 mg 01/11/19 09:00 01/12/19 08:13 Portsmouth-3 Fatty Acids [Portsmouth-3] PO Not Given DAILY [facility] Ondansetron HCl 4 mg 01/09/19 23:53 Zofran IVP Q8HR PRN Nausea And Vomiting Temazepam 15 mg 01/10/19 21:00 01/11/19 21:24 Restoril PO 15 mg HS [facility]ERE[facility] Administration Intake and Output 01/11/19 01/12/19 01/12/19 22:59 06:59 14:59 Intake Total 100 Output Total 1110 Balance -1010 Intake: Intake, IV Titration 100 Amount Piperacillin-Tazobactam 3 100 .375 gm In Sodium Chloride 0.9% 100 ml @ 25 mls/hr IVPB Q8H [facility] Rx#: [id number] Output: Urine 1110 Other: Voiding Method Incontinent Incontinent Incontinent # Voids 4 4 01/12/19 06:29 01/11/19 08:13
--- NOTE | 2019-01-12 17:16 | XR ---
EXAMINATION TYPE: XR abdomen 2V DATE OF EXAM: 01/12/2019 COMPARISON: 01/10/2019 HISTORY: Constipation TECHNIQUE: Supine and upright views FINDINGS: There is no sign of intestinal obstruction or pneumoperitoneum. Bowel gas pattern is normal . Lung bases are clear. There are no pathologic calcifications seen definitely over the kidneys. Ther e is no sign of a mass. IMPRESSION: Nonacute abdomen. No change.
[2019-01-12] MEDS: TEMAZEPAM 15 MG CAP PO SCH (21:01)
[2019-01-12] MEDS: DULoxetine HCL 30 MG CAPSULE.DR PO SCH (21:01)
[2019-01-13] MEDS ORDERED: LOPERAMIDE 2 MG CAP PO PRN
--- NOTE | 2019-01-13 | P.PN ---
Subjective Progress Note Date: 01/12/19 Principal diagnosis: Subacute diarrhea, diverticulitis Patient is seen lying in bed. She has tolerated a liquid diet. No abdominal pain currently. Still having some loose stool. Abdominal x-ray performed with normal bowel gas pattern and no evidence of large stool burden/constipation. Objective - Vital Signs Vital signs: Vital Signs Temp 97.9 F 01/12/19 07:56 Pulse 66 01/12/19 07:56 Resp 16 01/12/19 07:56 BP 178/77 01/12/19 07:56 Pulse Ox 95 01/12/19 07:56 Intake & Output 01/11/19 01/12/19 01/12/19 18:59 06:59 18:59 Intake Total 540 100 Output Total 1110 Balance 540 -1010 Intake: Intake, IV Titration 100 Amount Piperacillin-Tazobactam 3 100 .375 gm In Sodium Chloride 0.9% 100 ml @ 25 mls/hr IVPB Q8H [facility] Rx#: [id number] Oral 540 Output: Urine 1110 Other: Voiding Method Incontinent Incontinent Incontinent # Voids 4 4 1 - Exam On physical examination, patient appears comfortable in no apparent distress. HEAD: Normocephalic, atraumatic. EYES: No scleral icterus. No conjunctival injection. MOUTH: No lesions, tongue midline. NECK: Trachea midline, no gross abnormalities. ABDOMEN: Soft, thin. Bowel sounds are positive. No organomegaly. No guarding or rigidity. EXTREMITIES: No pedal edema. SKIN: No rashes, no jaundice. NEUROLOGIC: Alert and oriented x3. - Labs CBC & Chem 7: 01/12/19 06:29 01/11/19 08:13 Labs: Microbiology - Last 24 Hours (Table) 01/09/19 22:30 Urine Culture - Final Urine,Voided Citrobacter freundii Klebsiella pneumoniae Assessment and Plan (1) Diverticulitis large intestine w/o perforation or abscess w/o bleeding Narrative/Plan: 78-year-old female who has a past medical history significant for hypothyroidism, hypertension, coronary artery disease, Parkinson's disease and vertigo who presents to the hospital due to complaints of loose stool. Symptoms occurring nightly with no blood per rectum reported in last colonoscopy approximately 5 years ago at which time she did have rectal bleeding felt to be diverticular or hemorrhoidal in nature. No associated abdominal pain, nausea or vomiting. Initial x-ray abdomen was negative but CT of the abdomen was suspi cious for diverticulitis for which the patient is currently receiving antibiotic therapy. Stool studies negative to date except for elevated lactoferrin. No evidence of constipation on abdominal x-ray. Current Visit: Yes Status: Acute Code(s): K57.32 - DVTRCLI OF LG INT W/O PERFORATION OR ABSCESS W/O BLEEDING SNOMED Code(s): 0330864 (2) Diarrhea Current Visit: Yes Status: Acute Code(s): R19.7 - DIARRHEA, UNSPECIFIED SNOMED Code(s): 86763153 Plan: Supportive care Diet change to low fiber as tolerated Will order Clostridium difficile PCR given persistence of diarrhea Okay for antidiarrheals at this time given negative stool studies, we'll add Imodium as needed for diarrhea Continue Zosyn therapy Stool studies reviewed Imaging reviewed Would recommend colonoscopy in 4-6 weeks for further evaluation if patient is medically stable and agreeable Thank you for allowing us to participate in the care of the patient we will continue to follow
--- NOTE | 2019-01-13 00:44 | P.PN ---
Subjective Progress Note Date: 01/12/19 Principal diagnosis: This is an 78 year old female lying in bed in no acute distress. Multiple medical consultations following. When asked how she was doing today patient stated "not well". Patient states that she continues to have diarrhea and a cdiff was ordered along with stool studies showing negative for cdiff with positive lactoferrin. GI is following. Patient will follow up in the outpatient setting for possible colonoscopy. Discussed with the patient about discharge pl ans as she states that she lives at home alone and discussed possible rehab. PT/OT following. Urine culture thus far shows citrobacter freundii and klebsiella pneumonia. Patient is maintained on IV antibiotics in the form of Zosyn. Will continue to monitor. Guarded prognosis. REVIEW OF SYSTEMS: ENT: diminished vision and hearing. CARDIOVASCULAR: denies chest pain or palpitations. RESPIRATORY: denies shortness of breath or cough. GI: No nausea, vomiting. reports diarrhea. : No dysuria or retention. NERVOUS SYSTEM: No numbness. reports weakness. ALLERGY/IMMUNOLOGY: No asthma or hay fever. MUSCULOSKELETAL: reports generalized weakness HEMATOLOGY/ONCOLOGY: No history of anemia. CONSTITUTIONAL: As mentioned earlier. Active Medications Azelastine HCl (Astepro) 1 spray NASAL BID [facility] Last Admin: 01/12/19 21:02 Dose: Not Given Documented by: Carbidopa/Levodopa (Sinemet 25-100) 1 each PO TID [facility] Last Admin: 01/12/19 21:01 Dose: 1 each Documented by: Cholecalciferol (Vitamin D3 (25 Mcg = 1000 Iu)) 2,000 unit PO DAILY [facility] Last Admin: 01/12/19 08:08 Dose: 2,000 unit Documented by: Diltiazem HCl (Cardizem Cd) 180 mg PO DAILY [facility] Last Admin: 01/12/19 08:09 Dose: 180 mg Documented by: Duloxetine HCl (Cymbalta) 30 mg PO HS [facility] Last Admin: 01/12/19 21:01 Dose: 30 mg Documented by: Hydralazine HCl (Apresoline) 50 mg PO TID [facility] Last Admin: 01/12/19 21:01 Dose: 50 mg Documented by: Hydralazine HCl (Apresoline) 10 mg IVP Q6HR PRN PRN Reason: Hypertension Last Admin: 01/12/19 05:48 Dose: 10 mg Documented by: Sodium Chloride (Saline 0.9%) 1,000 mls @ 60 mls/hr IV .[id number] [facility] Last Admin: 01/12/19 17:20 Dose: 60 mls/hr Documented by: Piperacillin Sod/Tazobactam (Sod 3.375 gm/ Sodium Chloride) 100 mls @ 25 mls/hr IVPB Q8H [facility] Last Admin: 01/12/19 17:14 Dose: 25 mls/hr Documented by: Levothyroxine Sodium (Synthroid) 25 mcg PO DAILY@0630 [facility] Last Admin: 01/12/19 05:59 Dose: 25 mcg Documented by: Loperamide HCl (Imodium) 2 mg PO QID PRN PRN Reason: Diarrhea Meclizine HCl (Antivert) 25 mg PO TID PRN PRN Reason: Vertigo Metoprolol Tartrate (Lopressor) 25 mg PO BID [facility] Last Admin: 01/12/19 21:01 Dose: 25 mg Documented by: Multivitamins (Theragran) 1 each PO DAILY [facility] Last Admin: 01/12/19 08:08 Dose: 1 each Documented by: Naloxone HCl (Narcan) 0.2 mg IV Q2M PRN PRN Reason: Opioid Reversal Non-Formulary Medication (Ubidecarenone [Co Q-10]) 100 mg PO DAILY [facility] Last Admin: 01/12/19 08:13 Dose: Not Given Documented by: Non-Formulary Medication (Regina-3 Fatty Acids [Regina-3]) 1,000 mg PO DAILY [facility] Last Admin: 01/12/19 08:13 Dose: Not Given Documented by: Ondansetron HCl (Zofran) 4 mg IVP Q8HR PRN PRN Reason: Nausea And Vomiting Temazepam (Restoril) 15 mg PO HS [facility] Last Admin: 01/12/19 21:01 Dose: 15 mg Documented by: Objective - Vital Signs Vital signs: Vital Signs Temp 97.6 F 01/12/19 15:00 Pulse 65 01/12/19 15:14 Resp 16 01/12/19 15:00 BP 187/86 01/12/19 15:14 Pulse Ox 99 01/12/19 15:00 Intake & Output 01/11/19 01/12/19 01/12/19 18:59 06:59 18:59 Intake Total 540 100 Output Total 1110 Balance 540 -1010 Intake: Intake, IV Titration 100 Amount Piperacillin-Tazobactam 3 100 .375 gm In Sodium Chloride 0.9% 100 ml @ 25 mls/hr IVPB Q8H [facility] Rx#: [id number] Oral 540 Output: Urine 1110 Other: Voiding Method Incontinent Incontinent Incontinent # Voids 4 4 1 - Exam Gen: This is a 78 year old female lying in bed in no acute distress. Vital signs are stable. BP is elevated. BP is 178/77, pulse is 66, resp are 16, temp is 97.9F, 02 is 95% on room air. HEENT: Head is atraumatic, normocephalic. Pupils equal, round. Sclerae is anicteric. NECK: Supple. No JVD. No lymphadenopathy. No thyromegaly. LUNGS: Diminished breath sounds at the bases with no wheezes or rhonchi. No intercostal retractions. HEART: Irregularly irregular. S1 and S2 muffled ABDOMEN: Soft. Bowel sounds are present. No masses. mild tenderness upon palpation. EXTREMITIES: No pedal edema. No calf tenderness. NEUROLOGICAL: Patient is awake, alert and oriented x2-3. Cranial nerves 2 through 12 are grossly intact. - Labs CBC & Chem 7: 01/12/19 06:29 01/11/19 08:13 Labs: Microbiology - Last 24 Hours (Table) 01/09/19 22:30 Urine Culture - Final Urine,Voided Citrobacter freundii Klebsiella pneumoniae Assessment and Plan Assessment: Subacute diarrhea, possible acute diverticulitis Severe dehydration, present on admission History of falls and weakness with gait dysfunction Atrial fibrillation Bruise of the left mandible Dementia with old infarcts Metabolic encephalopathy, acute on chronic History of coronary artery disease History of CVA, TIA Hypertension History of deep brain stimulator, bilateral thalamic Gait dysfunction No code, no CPR, no vent Recommendations and discussion: Recommend current medications, management, and symptomatic treatment. GI is following and patient is tolerating diet and may advance to low fiber as tolerated. Immodium was added for continued diarrhea. Patient is being maintained on IV zosyn and will await culture finalization. Guarded prognosis. Further recommendations to follow. Case management and social work are following as patient may benefit from MARISOL upon discharge. PT/OT following. Will continue to monitor closely.
[2019-01-13] MEDS: PIPERACILLIN-TAZOBACTAM 3.375 GM in SODIUM CHLORIDE 0.9% 100 ML IVPB SCH ×3 (02:45→17:38)
[2019-01-13] MEDS: LEVOTHYROXINE 25 MCG TAB PO SCH (06:00)
[2019-01-13 07:58] LABS: Basophils % (A) 0 %; Eosinophils # (A) 0.2 k/uL (0-0.7); Eosinophils % (A) 2 %; HCT 37.3 % (34.0-46.0); HGB 12.3 gm/dL (11.4-16.0); Lymphocytes # (A) 1.4 k/uL (1.0-4.8); Lymphocytes % (A) 14 %; MCH 31.2 pg (25.0-35.0); MCV 94.7 fL (80.0-100.0); Mean Platelet Volume 5.7; Monocytes # (A) 0.6 k/uL (0-1.0); Monocytes % (A) 6 %; Neutrophils # (A) 8.1 k/uL (1.3-7.7); Neutrophils % (A) 77 %; Platelet Count 300 k/uL (150-450); RBC 3.94 m/uL (3.80-5.40); RDW 13.3 % (11.5-15.5); WBC 10.4 k/uL (3.8-10.6)
[2019-01-13] MEDS: METOPROLOL TARTRATE 25 MG TAB PO SCH ×2 (09:53→22:07)
[2019-01-13] MEDS: CHOLECALCIFEROL 1,000 UNIT TAB PO SCH (09:53)
[2019-01-13] MEDS: CARBIDOPA-LEVODOPA 25-100 MG 1 EACH TAB PO SCH ×3 (09:53→22:07)
[2019-01-13] MEDS: DILTIAZEM CD 180 MG CAP.ER.24H PO SCH (09:53)
[2019-01-13] MEDS: AZELASTINE 137MCG/SPRAY NASAL SCH ×2 (09:53→22:07)
[2019-01-13] MEDS: MULTIVITAMINS, THERA 1 EACH TAB PO SCH (09:53)
[2019-01-13] MEDS: hydrALAZINE HCL 50 MG TAB PO SCH ×3 (09:53→22:07)
[2019-01-13] MEDS: NON FORMULARY DRUG (Ubidecarenone [Co Q-10] 100 MG) PO SCH (09:54)
[2019-01-13] MEDS: NON FORMULARY DRUG (Omega-3 Fatty Acids [Omega-3] 1,000 MG) PO SCH (09:54)
--- NOTE | 2019-01-13 10:35 | P.PN ---
Subjective Progress Note Date: 01/13/19 Principal diagnosis: Diarrhea subclinical acute diverticulitis 78-year-old female with a history of colonic diverticulosis admitted with diarrhea C. diff negative positive lactoferrin last colonoscopy 5 years ago receiving IV antibiotics. Abdominal x-rays reported no stool burden. White count 10.4. Giardia ova parasite stool studies negative. Still passing a few nonbloody loose bowel movements per shift. Ammonium ordered as needed. Repeat C. diff evaluation requested. Objective - Vital Signs Vital signs: Vital Signs Temp 98.4 F 01/13/19 07:00 Pulse 72 01/13/19 07:00 Resp 16 01/13/19 07:00 BP 174/77 01/13/19 07:00 Pulse Ox 96 01/13/19 07:00 Intake & Output 01/12/19 01/13/19 01/13/19 18:59 06:59 18:59 Intake Total 580 Balance 580 Intake: Intake, IV Titration 580 Amount Piperacillin-Tazobactam 3 100 .375 gm In Sodium Chloride 0.9% 100 ml @ 25 mls/hr IVPB Q8H [facility] Rx#: [id number] Sodium Chloride 0.9% 1, 480 000 ml @ 60 mls/hr IV . [id number] [facility] Rx#:[id number] Other: Voiding Method Incontinent # Voids 1 1 # Bowel Movements 1 - Exam General appearance: The patient is alert, oriented, in no acute distress. HET: Head is normocephalic and atraumatic. Pupils are equal and reactive. Oropharynx is clear without lesions. Neck: Supple without lymphadenopathy. Trachea midline. Heart: S1 S2. Regular rate and rhythm. Lungs: No crackles or wheezes are heard. Abdomen: Soft, nontender, nondistended with bowel sounds. No peritoneal signs. No palpable organomegaly or masses. Extremities: Normal skin color and turgor. No cyanosis, rash, ulceration, clubbing, or edema. Radial and pedal pulses are 2/4 bilaterally. Neurological: No focal deficits. Strength and sensation are grossly intact. - Labs CBC & Chem 7: 01/13/19 07:06 01/11/19 08:13 Labs: Abnormal Lab Results - Last 24 Hours (Table) 01/13/19 Range/Units 07:06 Neutrophils # 8.1 H (1.3-7.7) k/uL Microbiology - Last 24 Hours (Table) 01/10/19 20:00 Stool Culture - Preliminary Stool 01/09/19 22:30 Urine Culture - Final Urine,Voided Citrobacter freundii Klebsiella pneumoniae Assessment and Plan (1) Diverticulitis large intestine w/o perforation or abscess w/o bleeding Narrative/Plan: Acute nonbloody diarrhea history of underlying colonic diverticulosis last colonoscopy [address] suspicious for sigmoid diverticulitis receiving antibiotic therapy stool studies negative to date except for positive lactoferrin. Current Visit: Yes Status: Acute Code(s): K57.32 - DVTRCLI OF LG INT W/O PERFORATION OR ABSCESS W/O BLEEDING SNOMED Code(s): 1438616 (2) Diarrhea Current Visit: Yes Status: Acute Code(s): R19.7 - DIARRHEA, UNSPECIFIED SNOMED Code(s): 01874842 Plan: 1. Imodium as needed. Continue with antibiotics and supportive measures. Outpatient colonoscopy in 4-6 weeks. Discharge per medicine. Assessment and plan a care discussed with Dr. Brown
--- NOTE | 2019-01-13 11:24 | P.PN ---
Subjective This is a pleasant 78-year-old female past medical history significant for paroxysmal atrial fibrillation, hypertension, CVA, Parkinson's disease and deep brain stimulator implant. She denies prior history of coronary artery disease. She follows with Dr. Fernández out of [facility] for cardiology. She is seen and examined resting comfortably in no acute distress. She denies chest discomfort, shortness of breath, dizziness or palpitations. reviewed from her primary high lift driver indicating she doesn't fact have paroxysmal atrial fibri llation on long-term anticoagulation secondary to unsteady gait, parkinson's disease and frequent falls. blood pressure 1 7477 heart rate 72 afebrile maintaining oxygen saturation on room air. GENERAL: This is a 78-year-old patient female in no apparent distress at the time of my examination. HEENT: Head is atraumatic, normocephalic. Pupils are equal, round. Sclerae anicteric. Conjunctivae are clear. Mucous membranes of the mouth are moist. Neck is supple. There is no jugular venous distention. No carotid bruit is heard. LUNGS: Clear to auscultation no wheezes, rales or rhonchi. No chest wall tenderness is noted on palpation or with deep breathing. HEART: Regular rate and rhythm with systolic ejection murmur at the base, no rubs or gallops. S1 and S2 heard. EXTREMITIES: No evidence of peripheral edema and no calf tenderness noted. 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 This is a decision that was made with her high lift driver and the patient. She is aware of the thromboembolic risk. No cardiac indication for plavix. Follow up with her high lift driver upon discharge. We will follow as needed. Nurse Practitioner note has been reviewed, I agree with a documented findings and plan of care. Patient was seen and examined. Objective - Vital Signs Vital signs: Vital Signs Temp 98.4 F 01/13/19 07:00 Pulse 72 01/13/19 07:00 Resp 16 01/13/19 07:00 BP 174/77 01/13/19 07:00 Pulse Ox 96 01/13/19 07:00 Intake & Output 01/12/19 01/13/19 01/13/19 18:59 06:59 18:59 Intake Total 580 450 Balance 580 450 Intake: Intake, IV Titration 580 Amount Piperacillin-Tazobactam 3 100 .375 gm In Sodium Chloride 0.9% 100 ml @ 25 mls/hr IVPB Q8H [facility] Rx#: [id number] Sodium Chloride 0.9% 1, 480 000 ml @ 60 mls/hr IV . [id number] [facility] Rx#:[id number] Oral 450 Other: Voiding Method Incontinent # Voids 1 1 # Bowel Movements 1 - Labs CBC & Chem 7: 01/13/19 07:06 01/11/19 08:13 Labs: Abnormal Lab Results - Last 24 Hours (Table) 01/13/19 Range/Units 07:06 Neutrophils # 8.1 H (1.3-7.7) k/uL Microbiology - Last 24 Hours (Table) 01/10/19 20:00 Stool Culture - Preliminary Stool 01/09/19 22:30 Urine Culture - Final Urine,Voided Citrobacter freundii Klebsiella pneumoniae
[2019-01-13] MEDS: SODIUM CHLORIDE 0.9% 1,000 ML IV SCH (12:26)
--- NOTE | 2019-01-13 15:34 | P.PN ---
Subjective Progress Note Date: 01/13/19 Principal diagnosis: This is an 78 year old female lying in bed in no acute distress. Multiple medical consultations following. When asked how she was doing today patient stated "not well". Patient states that she continues to have diarrhea and a cdiff was ordered along with stool studies showing negative for cdiff with positive lactoferrin. GI is following. Patient will follow up in the outpatient setting for possible colonoscopy. Discussed with the patient about discharge pl ans as she states that she lives at home alone and discussed possible rehab. PT/OT following. Urine culture thus far shows citrobacter freundii and klebsiella pneumonia. Patient is maintained on IV antibiotics in the form of Zosyn. Will continue to monitor. Guarded prognosis. REVIEW OF SYSTEMS: ENT: diminished vision and hearing. CARDIOVASCULAR: denies chest pain or palpitations. RESPIRATORY: denies shortness of breath or cough. GI: No nausea, vomiting. reports diarrhea. : No dysuria or retention. NERVOUS SYSTEM: No numbness. reports weakness. ALLERGY/IMMUNOLOGY: No asthma or hay fever. MUSCULOSKELETAL: reports generalized weakness HEMATOLOGY/ONCOLOGY: No history of anemia. CONSTITUTIONAL: As mentioned earlier. Active Medications Azelastine HCl (Astepro) 1 spray NASAL BID [facility] Last Admin: 01/12/19 21:02 Dose: Not Given Documented by: Carbidopa/Levodopa (Sinemet 25-100) 1 each PO TID [facility] Last Admin: 01/12/19 21:01 Dose: 1 each Documented by: Cholecalciferol (Vitamin D3 (25 Mcg = 1000 Iu)) 2,000 unit PO DAILY [facility] Last Admin: 01/12/19 08:08 Dose: 2,000 unit Documented by: Diltiazem HCl (Cardizem Cd) 180 mg PO DAILY [facility] Last Admin: 01/12/19 08:09 Dose: 180 mg Documented by: Duloxetine HCl (Cymbalta) 30 mg PO HS [facility] Last Admin: 01/12/19 21:01 Dose: 30 mg Documented by: Hydralazine HCl (Apresoline) 50 mg PO TID [facility] Last Admin: 01/12/19 21:01 Dose: 50 mg Documented by: Hydralazine HCl (Apresoline) 10 mg IVP Q6HR PRN PRN Reason: Hypertension Last Admin: 01/12/19 05:48 Dose: 10 mg Documented by: Sodium Chloride (Saline 0.9%) 1,000 mls @ 60 mls/hr IV .[id number] [facility] Last Admin: 01/12/19 17:20 Dose: 60 mls/hr Documented by: Piperacillin Sod/Tazobactam (Sod 3.375 gm/ Sodium Chloride) 100 mls @ 25 mls/hr IVPB Q8H [facility] Last Admin: 01/12/19 17:14 Dose: 25 mls/hr Documented by: Levothyroxine Sodium (Synthroid) 25 mcg PO DAILY@0630 [facility] Last Admin: 01/12/19 05:59 Dose: 25 mcg Documented by: Loperamide HCl (Imodium) 2 mg PO QID PRN PRN Reason: Diarrhea Meclizine HCl (Antivert) 25 mg PO TID PRN PRN Reason: Vertigo Metoprolol Tartrate (Lopressor) 25 mg PO BID [facility] Last Admin: 01/12/19 21:01 Dose: 25 mg Documented by: Multivitamins (Theragran) 1 each PO DAILY [facility] Last Admin: 01/12/19 08:08 Dose: 1 each Documented by: Naloxone HCl (Narcan) 0.2 mg IV Q2M PRN PRN Reason: Opioid Reversal Non-Formulary Medication (Ubidecarenone [Co Q-10]) 100 mg PO DAILY [facility] Last Admin: 01/12/19 08:13 Dose: Not Given Documented by: Non-Formulary Medication (Rye-3 Fatty Acids [Rye-3]) 1,000 mg PO DAILY [facility] Last Admin: 01/12/19 08:13 Dose: Not Given Documented by: Ondansetron HCl (Zofran) 4 mg IVP Q8HR PRN PRN Reason: Nausea And Vomiting Temazepam (Restoril) 15 mg PO HS [facility] Last Admin: 01/12/19 21:01 Dose: 15 mg Documented by: 01/13/2019 Patient is lying in bed in no acute distress. No acute overnight issues. Patient states that her diarrhea has lessened and is being followed by GI. Patient is currently on IV antibiotics in the form of Zosyn and will continue at this time. A repeat C. diff test was ordered per GI and is currently pending at this time as patient has not had a bowel movement yet today. Patient will be given Imodium as needed. Case management and social media coordinator following as patient may benefit from subacute rehab upon discharge for frequent falls and gait dysfunction as she does live at home alone. Discussed this with the patient today and at this time patient is agreeable. Will continue to monitor closely. Objective - Vital Signs Vital signs: Vital Signs Temp 97.4 F L 01/13/19 14:11 Pulse 68 01/13/19 14:11 Resp 16 01/13/19 14:11 BP 133/65 01/13/19 14:11 Pulse Ox 98 01/13/19 14:11 Intake & Output 01/12/19 01/13/19 01/13/19 18:59 06:59 18:59 Intake Total 580 850 Output Total 200 Balance 580 650 Intake: Intake, IV Titration 580 Amount Piperacillin-Tazobactam 3 100 .375 gm In Sodium Chloride 0.9% 100 ml @ 25 mls/hr IVPB Q8H [facility] Rx#: [id number] Sodium Chloride 0.9% 1, 480 000 ml @ 60 mls/hr IV . [id number] [facility] Rx#:[id number] Oral 850 Output: Urine 200 Other: Voiding Method Incontinent # Voids 1 1 # Bowel Movements 1 - Exam Gen: This is a 78 year old female lying in bed in no acute distress. Vital signs are stable. BP is elevated. BP is 33/65, pulse is 68, resp are 16, temp is 97.4F, 02 is 98% on room air. HEENT: Head is atraumatic, normocephalic. Pupils equal, round. Sclerae is anicteric. NECK: Supple. No JVD. No lymphadenopathy. No thyromegaly. LUNGS: Diminished breath sounds at the bases with no wheezes or rhonchi. No intercostal retractions. HEART: Irregularly irregular. S1 and S2 muffled ABDOMEN: Soft. Bowel sounds are present. No masses. mild tenderness upon palpation. Tenderness has improved from yesterday. EXTREMITIES: No pedal edema. No calf tenderness. NEUROLOGICAL: Patient is awake, alert and oriented x2-3. Cranial nerves 2 through 12 are grossly intact. 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 GI is following and patient is tolerating diet and may advance to low fiber as tolerated. Immodium was added for continued diarrhea. Diarrhea has lessened and patient is feeling slightly better. Patient is tolerating the advanced diet and will continue to monitor closely. Patient is being maintained on IV zosyn and will await culture finalization. Guarded prognosis. Further recommendations to follow. Case management and social work are following as patient may benefit donte DAMON upon discharge. PT/OT following. Will continue to monitor closely.
[2019-01-13] MEDS: TEMAZEPAM 15 MG CAP PO SCH (22:07)
[2019-01-13] MEDS: DULoxetine HCL 30 MG CAPSULE.DR PO SCH (22:07)
[2019-01-14] MEDS ORDERED: DILTIAZEM DRIP BOLUS FROM BAG 1 MG SOLN IV ONE (02:10)
[2019-01-14] MEDS: PIPERACILLIN-TAZOBACTAM 3.375 GM in SODIUM CHLORIDE 0.9% 100 ML IVPB SCH ×3 (02:11→18:52)
[2019-01-14 02:15] VITALS: RESP 18
[2019-01-14] MEDS: DILTIAZEM 125 MG in SODIUM CHLORIDE 0.9% 100 ML IV SCH ×2 (03:30→15:32)
[2019-01-14 06:25] LABS: Calcium 8.8 mg/dL (8.4-10.2); Magnesium 1.5 mg/dL (1.6-2.3)
[2019-01-14] MEDS: LEVOTHYROXINE 25 MCG TAB PO SCH (07:02)
[2019-01-14] MEDS: SODIUM CHLORIDE 0.9% 1,000 ML IV SCH ×2 (07:02→21:22)
[2019-01-14] MEDS: DILTIAZEM CD 180 MG CAP.ER.24H PO SCH (08:25)
[2019-01-14] MEDS: MULTIVITAMINS, THERA 1 EACH TAB PO SCH (08:25)
[2019-01-14] MEDS: CHOLECALCIFEROL 1,000 UNIT TAB PO SCH (08:25)
[2019-01-14] MEDS: hydrALAZINE HCL 50 MG TAB PO SCH ×3 (08:25→21:21)
[2019-01-14] MEDS: CARBIDOPA-LEVODOPA 25-100 MG 1 EACH TAB PO SCH ×3 (08:25→21:21)
[2019-01-14] MEDS: METOPROLOL TARTRATE 25 MG TAB PO SCH ×2 (08:26→21:21)
[2019-01-14] MEDS: AZELASTINE 137MCG/SPRAY NASAL SCH ×2 (09:10→21:22)
[2019-01-14] MEDS: NON FORMULARY DRUG (Omega-3 Fatty Acids [Omega-3] 1,000 MG) PO SCH (09:10)
[2019-01-14] MEDS: NON FORMULARY DRUG (Ubidecarenone [Co Q-10] 100 MG) PO SCH (09:10)
[2019-01-14] MEDS ORDERED: Potassium Replacement Protocol 1 EACH MISC MISCELLANE PRN (10:08)
[2019-01-14] MEDS: POTASSIUM CHLORIDE ER 20 MEQ TAB.ER PO SCH ×2 (11:37→12:35)
--- NOTE | 2019-01-14 11:43 | PN ---
PROGRESS NOTE DATE OF SERVICE: 01/14/2019 The patient is an 78-year-old pleasant white female admitted to hospital with acute diarrhea for the last few days duration. CT scan of the abdomen showed thickening of the colon suspicious for acute colitis. The patient is on broad-spectrum antibiotics with Zosyn and the diarrhea is gradually improving. This morning she had only 2 bowel movements, 1 of which was loose. Another 1 was soft in consistency. She reports no abdominal pain. Denies any rectal bleeding. On a regular diet tolerating well. PHYSICAL EXAMINATION: She appears comfortable. VITAL SIGNS: Stable. Blood pressure 134/71, pulse rate 88, temperature 97.8. HEENT examination unremarkable. Conjunctivae pink. Sclerae anicteric. Oral cavity no lesions. NECK: No JVD or lymph node enlargement. CHEST: Clear to auscultation. HEART: Regular rate and rhythm. ABDOMEN: Soft, it was nontender, nondistended. Bowel sounds are positive. No organomegaly. EXTREMITIES: Tremors noted. NEUROLOGIC: Alert and oriented x3. No focal deficits. LABS: Basic metabolic panel is within normal limits. Magnesium is 1.5. Stool studies, C difficile toxin is negative. Lactoferrin is positive. Cultures are negative. GI is negative. IMPRESSION: 1. Acute onset of diarrhea for the last [address] scan of the abdomen showing changes suspicious for sigmoid diverticulitis presently on Zosyn doing well. The diarrhea is also resolving. Stool studies so far have been negative. 2. Acute sigmoid diverticulitis. RECOMMENDATIONS: 1. Continue with broad-spectrum antibiotics. 2. Advance diet as tolerated. 3. If the patient is discharged home, she was advised to follow up in office in 4-6 weeks. Thank you for this consultation. MMODL / IJN: [id number] /
[2019-01-14] MEDS: DILTIAZEM ORAL 60 MG TAB PO SCH ×2 (15:33→21:21)
[2019-01-14] MEDS ORDERED: Magnesium Replacement Protocol 1 EACH MISC MISCELLANE PRN (15:57)
[2019-01-14] MEDS: MAGNESIUM SULFATE-D5W PMX 1 GM in DEXTROSE/WATER 1 100ML.BAG IVPB SCH ×2 (16:37→17:47)
[2019-01-14] MEDS: TEMAZEPAM 15 MG CAP PO SCH (21:21)
[2019-01-14] MEDS: DULoxetine HCL 30 MG CAPSULE.DR PO SCH (21:21)
[2019-01-14 23:08] LABS: Calcium 8.9 mg/dL (8.4-10.2); Magnesium 2.4 mg/dL (1.6-2.3); Potassium 3.6 mmol/L (3.5-5.1)
[2019-01-15] MEDS: PIPERACILLIN-TAZOBACTAM 3.375 GM in SODIUM CHLORIDE 0.9% 100 ML IVPB SCH ×3 (05:05→17:18)
[2019-01-15] MEDS: LEVOTHYROXINE 25 MCG TAB PO SCH (05:06)
[2019-01-15] MEDS: DILTIAZEM ORAL 60 MG TAB PO SCH ×4 (08:54→21:40)
[2019-01-15] MEDS: CHOLECALCIFEROL 1,000 UNIT TAB PO SCH (08:54)
[2019-01-15] MEDS: METOPROLOL TARTRATE 25 MG TAB PO SCH ×2 (08:54→21:40)
[2019-01-15] MEDS: hydrALAZINE HCL 50 MG TAB PO SCH ×3 (08:54→21:40)
[2019-01-15] MEDS: CARBIDOPA-LEVODOPA 25-100 MG 1 EACH TAB PO SCH ×3 (08:54→21:40)
[2019-01-15] MEDS: MULTIVITAMINS, THERA 1 EACH TAB PO SCH (08:55)
[2019-01-15] MEDS: NON FORMULARY DRUG (Ubidecarenone [Co Q-10] 100 MG) PO SCH (08:56)
[2019-01-15] MEDS: NON FORMULARY DRUG (Omega-3 Fatty Acids [Omega-3] 1,000 MG) PO SCH (08:56)
[2019-01-15] MEDS: AZELASTINE 137MCG/SPRAY NASAL SCH ×2 (12:25→21:40)
[2019-01-15] MEDS: SODIUM CHLORIDE 0.9% 1,000 ML IV SCH (15:25)
--- NOTE | 2019-01-15 15:59 | PN ---
PROGRESS NOTE DATE OF SERVICE: January 15, 2019 Patient is an 78-year-old pleasant white female admitted to the hospital with lower abdominal pain and acute diarrhea that started 2 days prior to hospitalization. CT of the abdomen showed evidence of colitis/diverticulitis. Patient on broad-spectrum antibiotics with Zosyn and symptoms are gradually improving. She had only 1 bowel movement today. It was soft and solid in consistency. Denies any abdominal pain. No nausea, vomiting. Tolerating regular diet well. PHYSICAL EXAMINATION: Appears comfortable. No apparent distress. VITAL SIGNS: Stable. Blood pressure is 173/75, pulse is 63, temperature 98. HEENT examination unremarkable. Conjunctivae pink. Sclerae anicteric. Oral cavity no lesions. Neck no JVD or lymph node enlargement. Chest was clear to auscultation. HEART: Regular rate and rhythm. ABDOMEN: Soft. Bowel sounds are positive. No organomegaly. EXTREMITIES no pedal edema. SKIN no rashes. NEUROLOGIC: Alert and oriented x3. No focal deficits. LABS: No labs available from today. IMPRESSION: 1. Acute infectious diarrhea/sigmoid diverticulitis. Patient on broad-spectrum antibiotics. Symptoms are significantly improved. 2. History of Parkinson's disease. 3. History of atrial fibrillation. RECOMMENDATIONS: 1. Continue with antibiotics. 2. Advance diet as tolerated. 3. She can be discharged home today or tomorrow with an outpatient followup as needed. Thank you for this consultation. MMODL / IJN: [id number] /
[2019-01-15] MEDS: DULoxetine HCL 30 MG CAPSULE.DR PO SCH (21:41)
[2019-01-15] MEDS: TEMAZEPAM 15 MG CAP PO SCH (21:41)
--- NOTE | 2019-01-15 23:09 | P.PN ---
Subjective Progress Note Date: 01/14/19 Principal diagnosis: Colitis Atrial fibrillation with rapid ventricular rate. Paroxysmal This is an 78 year old female lying in bed in no acute distress. Multiple medical consultations following. When asked how she was doing today patient stated "not well". Patient states that she continues to have diarrhea and a cdiff was ordered along with stool studies showing negative for cdiff with positive lactoferrin. GI is following. Patient will follow up in the outpatient setting for possible colonoscopy. Discussed with the patient about discharge plans as she states that she lives at home alone and discussed possible rehab. PT/OT following. Urine culture thus far shows citrobacter freundii and klebsiella pneumonia. Patient is maintained on IV antibiotics in the form of Zosyn. Will continue to monitor. Guarded prognosis. 01/13/2019 Patient is lying in bed in no acute distress. No acute overnight issues. Patient states that her diarrhea has lessened and is being followed by GI. Patient is currently on IV antibiotics in the form of Zosyn and will continue at this time. A repeat C. diff test was ordered per GI and is currently pending at this time as patient has not had a bowel movement yet today. Patient will be given Imodium as needed. Case management and social service agency director following as patient may benefit from subacute rehab upon discharge for frequent falls and gait dysfunction as she does live at home alone. Discussed this with the patient today and at this time patient is agreeable. Will continue to monitor closely. Records were obtained from her piece goods clerk and patient was seen piece goods clerk here to determine her atrial fibrillation status. Per cardiology records patient has a history of paroxysmal atrial fibrillation and is currently not on any anticoagulation as this was discussed and decided between the piece goods clerk and patient due to her history of Parkinson's, unsteady gait, and frequent falls. 01/14/2019 Patient is currently lying in the bed comfortably. Denied any complaints of chest pain or shortness of breath. Patient went into A. fib with RVR yesterday and was transferred to telemetry unit. Patient was started on Cardizem drip. Patient is currently on Cardizem 180 mg daily. Patient denied any diarrhea.. Currently on antibiotics in the form of Zosyn. Cardiology and GI is following. Anticipate discharge to rehab on Wednesday. REVIEW OF SYSTEMS: ENT: diminished vision and hearing. CARDIOVASCULAR: denies chest pain or palpitations. RESPIRATORY: denies shortness of breath or cough. GI: No nausea, vomiting. reports diarrhea. : No dysuria or retention. NERVOUS SYSTEM: No numbness. reports weakness. ALLERGY/IMMUNOLOGY: No asthma or hay fever. MUSCULOSKELETAL: reports generalized weakness HEMATOLOGY/ONCOLOGY: No history of anemia. CONSTITUTIONAL: As mentioned earlier. Objective - Vital Signs Vital signs: Vital Signs Temp 98.2 F 01/15/19 19:55 Pulse 66 01/15/19 19:56 Resp 18 01/15/19 19:56 BP 149/67 01/15/19 19:55 Pulse Ox 95 01/15/19 19:55 Intake & Output 01/15/19 01/15/19 01/16/19 06:59 18:59 06:59 Intake Total 100 950 Balance 100 950 Weight 54.6 kg Intake: Intake, IV Titration 100 200 Amount Magnesium Sulfate-D5w Pmx 100 1 gm In Dextrose/Water 1 100ml.bag @ 100 mls/hr IVPB Q1H [facility] Rx#: [id number] Piperacillin-Tazobactam 3 200 .375 gm In Sodium Chloride 0.9% 100 ml @ 25 mls/hr IVPB Q8H [facility] Rx#: [id number] Oral 750 Other: Voiding Method Toilet Toilet Toilet # Voids 1 1 # Bowel Movements 1 - Exam Gen: This is a 78 year old female lying in bed in no acute distress. Vital signs are stable. BP is elevated. BP is 33/65, pulse is 68, resp are 16, temp is 97.4F, 02 is 98% on room air. HEENT: Head is atraumatic, normocephalic. Pupils equal, round. Sclerae is anicteric. NECK: Supple. No JVD. No lymphadenopathy. No thyromegaly. LUNGS: Diminished breath sounds at the bases with no wheezes or rhonchi. No intercostal retractions. HEART: Irregularly irregular. S1 and S2 muffled ABDOMEN: Soft. Bowel sounds are present. No masses. mild tenderness upon palpation. Tenderness has improved from yesterday. EXTREMITIES: No pedal edema. No calf tenderness. NEUROLOGICAL: Patient is awake, alert and oriented x2-3. Cranial nerves 2 throu gh 12 are grossly intact. - Labs CBC & Chem 7: 01/13/19 07:06 10/12/19 22:16 Labs: Abnormal Lab Results - Last 24 Hours (Table) 01/14/19 Range/Units 22:16 Sodium 135 L (137-145) mmol/L Glucose 129 H (74-99) mg/dL Magnesium 2.4 H (1.6-2.3) mg/dL Assessment and Plan Assessment: Subacute diarrhea, possible acute diverticulitis Acute urinary tract infection with Citrobacter and Klebsiella Paroxysmal Atrial fibrillation with RVR. Not on anticoagulation due to frequent falls. 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 GI is following and patient is tolerating diet and may advance to low fiber as tolerated. Immodium was added for continued diarrhea. Diarrhea has lessened and patient is feeling slightly better. Patient is tolerating the advanced diet and will continue to monitor closely. Patient is being maintained on IV zosyn and will await culture finalization. Guarded prognosis. Further recommendations to follow. Case management and social work are following as patient may benefit from [facility] upon discharge. PT/OT following. Will continue to monitor closely. Time with Patient: Greater than 30
--- NOTE | 2019-01-15 23:11 | P.PN ---
Subjective Progress Note Date: 01/15/19 Principal diagnosis: Colitis Atrial fibrillation with rapid ventricular rate. Paroxysmal This is an 78 year old female lying in bed in no acute distress. Multiple medical consultations following. When asked how she was doing today patient stated "not well". Patient states that she continues to have diarrhea and a cdiff was ordered along with stool studies showing negative for cdiff with positive lactoferrin. GI is following. Patient will follow up in the outpatient setting for possible colonoscopy. Discussed with the patient about discharge plans as she states that she lives at home alone and discussed possible rehab. PT/OT following. Urine culture thus far shows citrobacter freundii and klebsiella pneumonia. Patient is maintained on IV antibiotics in the form of Zosyn. Will continue to monitor. Guarded prognosis. 01/13/2019 Patient is lying in bed in no acute distress. No acute overnight issues. Patient states that her diarrhea has lessened and is being followed by GI. Patient is currently on IV antibiotics in the form of Zosyn and will continue at this time. A repeat C. diff test was ordered per GI and is currently pending at this time as patient has not had a bowel movement yet today. Patient will be given Imodium as needed. Case management and social work nurse following as patient may benefit from subacute rehab upon discharge for frequent falls and gait dysfunction as she does live at home alone. Discussed this with the patient today and at this time patient is agreeable. Will continue to monitor closely. Records were obtained from her pss delivery professional and patient was seen pss delivery professional here to determine her atrial fibrillation status. Per cardiology records patient has a history of paroxysmal atrial fibrillation and is currently not on any anticoagulation as this was discussed and decided between the pss delivery professional and patient due to her history of Parkinson's, unsteady gait, and frequent falls. 01/14/2019 Patient is currently lying in the bed comfortably. Denied any complaints of chest pain or shortness of breath. Patient went into A. fib with RVR yesterday and was transferred to telemetry unit. Patient was started on Cardizem drip. Patient is currently on Cardizem 180 mg daily. Patient denied any diarrhea.. Currently on antibiotics in the form of Zosyn. Cardiology and GI is following. Anticipate discharge to rehab on Wednesday. 01/15/2019 Patient denied any complaints of chest pain or shortness of breath. Heart rate is better controlled now. Cardizem drip has been discontinued. Patient is currently on Cardizem 60 mg every 6 hourly. Otherwise blood pressure is still elevated. No complaints of diarrhea. No nausea vomiting or abdominal pain. Tolerating oral diet. Patient is being continued on antibiotics in the form of Zosyn. Final stool culture negative. Anticipate discharged to rehab in the next 24 hours. REVIEW OF SYSTEMS: ENT: diminished vision and hearing. CARDIOVASCULAR: denies chest pain or palpitations. RESPIRATORY: denies shortness of breath or cough. GI: No nausea, vomiting. reports diarrhea. : No dysuria or retention. NERVOUS SYSTEM: No numbness. reports weakness. ALLERGY/IMMUNOLOGY: No asthma or hay fever. MUSCULOSKELETAL: reports generalized weakness HEMATOLOGY/ONCOLOGY: No history of anemia. CONSTITUTIONAL: As mentioned earlier. Objective - Vital Signs Vital signs: Vital Signs Temp 98.2 F 01/15/19 19:55 Pulse 66 01/15/19 19:56 Resp 18 01/15/19 19:56 BP 149/67 01/15/19 19:55 Pulse Ox 95 01/15/19 19:55 Intake & Output 01/15/19 01/15/19 01/16/19 06:59 18:59 06:59 Intake Total 100 950 Balance 100 950 Weight 54.6 kg Intake: Intake, IV Titration 100 200 Amount Magnesium Sulfate-D5w Pmx 100 1 gm In Dextrose/Water 1 100ml.bag @ 100 mls/hr IVPB Q1H [facility] Rx#: [id number] Piperacillin-Tazobactam 3 200 .375 gm In Sodium Chloride 0.9% 100 ml @ 25 mls/hr IVPB Q8H SHERE[facility] Rx#: [id number] Oral 750 Other: Voiding Method Toilet Toilet Toilet # Voids 1 1 # Bowel Movements 1 - Exam Gen: This is a 78 year old female lying in bed in no acute distress. Vital signs are stable. BP is elevated. BP is 33/65, pulse is 68, resp are 16, temp is 97.4F, 02 is 98% on room air. HEENT: Head is atraumatic, normocephalic. Pupils equal, round. Sclerae is anicteric. NECK: Supple. No JVD. No lymphadenopathy. No thyromegaly. LUNGS: Diminished breath sounds at the bases with no wheezes or rhonchi. No intercostal retractions. HEART: Irregularly irregular. S1 and S2 muffled ABDOMEN: Soft. Bowel sounds are present. No masses. mild tenderness upon palpation. Tenderness has improved from yesterday. EXTREMITIES: No pedal edema. No calf tenderness. NEUROLOGICAL: Patient is awake, alert and oriented x2-3. Cranial nerves 2 through 12 are grossly intact. - Labs CBC & Chem 7: 01/13/19 07:06 01/14/19 22:16 Labs: Abnormal Lab Results - Last 24 Hours (Table) 01/14/19 Range/Units 22:16 Sodium 135 L (137-145) mmol/L Glucose 129 H (74-99) mg/dL Magnesium 2.4 H (1.6-2.3) mg/dL Assessment and Plan Assessment: Subacute diarrhea, possible acute diverticulitis Acute urinary tract infection with Citrobacter and Klebsiella Paroxysmal Atrial fibrillation with RVR. Not on anticoagulation due to frequent falls. 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 GI is following and patient is tolerating diet and may advance to low fiber as tolerated. Immodium was added for continued diarrhea. Diarrhea has lessened and patient is feeling slightly better. Patient is tolerating the advanced diet and will continue to monitor closely. Patient is being maintained on IV zosyn and will await culture finalization. Guarded prognosis. Further recommendations to follow. Case management and social work are following as patient may benefit from [facility] upon discharge. PT/OT following. Will continue to monitor closely. Time with Patient: Greater than 30
[2019-01-16] MEDS: PIPERACILLIN-TAZOBACTAM 3.375 GM in SODIUM CHLORIDE 0.9% 100 ML IVPB SCH ×2 (03:05→09:05)
[2019-01-16] MEDS: SODIUM CHLORIDE 0.9% 1,000 ML IV SCH (06:06)
[2019-01-16] MEDS: LEVOTHYROXINE 25 MCG TAB PO SCH (06:07)
[2019-01-16 06:22] LABS: Basophils # (A) 0.1 k/uL (0-0.2); Basophils % (A) 1 %; Eosinophils # (A) 0.4 k/uL (0-0.7); Eosinophils % (A) 4 %; HGB 11.3 gm/dL (11.4-16.0); Lymphocytes # (A) 2.1 k/uL (1.0-4.8); Lymphocytes % (A) 25 %; MCH 30.5 pg (25.0-35.0); MCHC 32.4 g/dL (31.0-37.0); MCV 94.3 fL (80.0-100.0); Mean Platelet Volume 5.8; Monocytes # (A) 0.6 k/uL (0-1.0); Monocytes % (A) 7 %; Neutrophils % (A) 59 %; Platelet Count 304 k/uL (150-450); RBC 3.71 m/uL (3.80-5.40); RDW 13.8 % (11.5-15.5); WBC 8.5 k/uL (3.8-10.6)
[2019-01-16 06:55] LABS: Calcium 9.1 mg/dL (8.4-10.2); Potassium 3.7 mmol/L (3.5-5.1)
[2019-01-16] MEDS: DILTIAZEM ORAL 60 MG TAB PO SCH ×2 (09:06→12:49)
[2019-01-16] MEDS: MULTIVITAMINS, THERA 1 EACH TAB PO SCH (09:06)
[2019-01-16] MEDS: CARBIDOPA-LEVODOPA 25-100 MG 1 EACH TAB PO SCH (09:06)
[2019-01-16] MEDS: CHOLECALCIFEROL 1,000 UNIT TAB PO SCH (09:06)
[2019-01-16] MEDS: METOPROLOL TARTRATE 25 MG TAB PO SCH (09:06)
[2019-01-16] MEDS: hydrALAZINE HCL 50 MG TAB PO SCH (09:07)
[2019-01-16] MEDS ORDERED: POTASSIUM CHLORIDE ER 20 MEQ TAB.ER PO STA (09:13)
--- NOTE | 2019-01-16 11:42 | P.DS ---
Providers Date of admission: 01/11/19 10:38 Expected date of discharge: 01/16/19 Attending physician: Herber Keane MD Consults: 01/10/19 13:26 Consult Physician Routine Consulting Provider: Alyx Brown Consult Reason/Comments: diarrhea Do you want consulting provider notified?: Yes 01/10/19 16:55 Consult Physician Routine Consulting Provider: Jocelyn Longo Consult Reason/Comments: weakness Do you want consulting provider notified?: Yes 01/11/19 13:11 Consult Physician Routine Consulting Provider: Florence Mcneil Consult Reason/Comments: hx afib, need confirmation. 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 Patient will follow-up with her kiln drawer upon discharge and gastroenterology as needed for possible colonoscopy. Patient will continue with a short course of oral antibiotics for 3 days and then will discontinue. Total time taken is 35 minutes. History of present illness This is an 78-year-old female who was recently admitted for gait dysfunction, diarrhea, and generalized weakness and was being closely monitored. States that she does live at home alone and is been having more frequent falls possibly due to her Parkinson's. Patient does have an history of atrial fibrillation and is not currently on any anticoagulation as she is discussed with her kiln drawer given her history of falls and Parkinson's she opted for no anticoagulation. During hospitalization patient had a brief episode of atrial fibrillation with RVR and was placed on a Cardizem drip and his since converted to sinus rhythm and patient takes Cardizem which was increased to 60 mg 4 times daily. During hospitalization patient's diarrhea had improved and is currently being treated for acute diverticulitis acute urinary tract infection. Patient will continue on her short course of oral Levaquin daily for 3 days as well as Flagyl 3 times daily for 3 days and then may discontinue. Patient may follow-up with gastroenterology in the outpatient setting for possible colonoscopy in a few weeks as an outpatient. Currently patient is not having any diarrhea and diet has been advanced and is tolerating well. She was given Imodium as needed. Currently patient's condition is stable with much improvement and is ready for discharge to subacute rehab today. Guarded prognosis. On exam vital signs are stable. Temp is 98.9F, pulse is 63, respirations are 18, blood pressure is 176/79, oxygen saturation is 94% on room air. Cardio S1 a nd S2 are muffled. Respiratory system shows diminished breath sounds at the bases otherwise clear to auscultation. Abdomen is soft and nontender. Nervous system shows no focal deficits with mild diffuse weakness. Please refer to medication reconciliation sheet for a list of medications. Patient Condition at Discharge: Stable Plan - Discharge Summary New Discharge Prescriptions: New Diltiazem Oral [Cardizem*] 60 mg PO QID 30 Days #120 tab Loperamide [Imodium] 2 mg PO QID PRN cap PRN Reason: Diarrhea metroNIDAZOLE [Flagyl] 500 mg PO TID 3 Days #9 tab Levofloxacin [Levaquin] 500 mg PO DAILY 3 Days #3 tab Continue Cholecalciferol (Vitamin D3) [Vitamin D3] 2,000 unit PO DAILY Azelastine HCl [Astepro] 1 spray NASAL BID Ubidecarenone [Co Q-10] 100 mg PO DAILY Polyethylene Glycol 3350 [Miralax] 17 gm PO HS PRN PRN Reason: Constipation Orange-3 Fatty Acids [Orange-3] 1,000 mg PO DAILY Cranberry Fruit Extract [Cranberry] 200 mg PO DAILY Multivitamins, Thera [Multivitamin (formulary)] 1 tab PO DAILY Metoprolol Tartrate 25 mg PO BID Meclizine HCl 25 mg PO TID PRN PRN Reason: Vertigo Temazepam [Restoril] 15 mg PO HS Levothyroxine Sodium [Synthroid] 25 mcg PO DAILY hydrALAZINE HCL [Apresoline] 50 mg PO TID #90 tab Olmesartan Medoxomil [Benicar] 40 mg PO DAILY L. Rhamnosus GG/Inulin [Culturelle Digest 10B Cell Cap] 1 cap PO DAILY Glucosam/Yobani-Msm1/C/Mannie/Bosw [Glucosamine-Chondroitin Tablet] 1 tab PO DAILY DULoxetine HCL [Cymbalta] 30 mg PO HS Carbidopa-Levodopa 25-100 mg [Sinemet 25-100 mg] 1 tab PO TID Iron Complex 1 tab PO MOFR Discontinued Clopidogrel Bisulfate [Plavix] 75 mg PO DAILY Diltiazem HCl [Cartia Xt] 180 mg PO DAILY Discharge Medication List Azelastine HCl [Astepro] 1 spray NASAL BID 07/03/18 [History] Cholecalciferol (Vitamin D3) [Vitamin D3] 2,000 unit PO DAILY 07/03/18 [History] Cranberry Fruit Extract [Cranberry] 200 mg PO DAILY 07/03/18 [History] Levothyroxine Sodium [Synthroid] 25 mcg PO DAILY 07/03/18 [History] Meclizine HCl 25 mg PO TID PRN 07/03/18 [History] Metoprolol Tartrate 25 mg PO BID 07/03/18 [History] Multivitamins, Thera [Multivitamin (formulary)] 1 tab PO DAILY 07/03/18 [History] Orange-3 Fatty Acids [Orange-3] 1,000 mg PO DAILY 07/03/18 [History] Polyethylene Glycol 3350 [Miralax] 17 gm PO HS PRN 07/03/18 [History] Temazepam [Restoril] 15 mg PO HS 07/03/18 [History] Ubidecarenone [Co Q-10] 100 mg PO DAILY 07/03/18 [History] hydrALAZINE HCL [Apresoline] 50 mg PO TID #90 tab 07/05/18 [Rx] L. Rhamnosus GG/Inulin [Culturelle Digest 10B Cell Cap] 1 cap PO DAILY 09/15/18 [History] Olmesartan Medoxomil [Benicar] 40 mg PO DAILY 09/15/18 [History] Carbidopa-Levodopa 25-100 mg [Sinemet 25-100 mg] 1 tab PO TID 01/09/19 [History] DULoxetine HCL [Cymbalta] 30 mg PO HS 01/09/19 [History] Glucosam/Yobani-Msm1/C/Mannie/Bosw [Glucosamine-Chondroitin Tablet] 1 tab PO DAILY 01/09/19 [History] Iron Complex 1 tab PO MOFR 01/09/19 [History] Diltiazem Oral [Cardizem*] 60 mg PO QID 30 Days #120 tab 01/16/19 [Rx] Levofloxacin [Levaquin] 500 mg PO DAILY 3 Days #3 tab 01/16/19 [Rx] Loperamide [Imodium] 2 mg PO QID PRN cap 01/16/19 [Rx] metroNIDAZOLE [Flagyl] 500 mg PO TID 3 Days #9 tab 01/16/19 [Rx] Follow up Appointment(s)/Referral(s): Sam Desai MD [Primary Care Provider] - 1 Week Alyx Brown MD [STAFF PHYSICIAN] - 1 Week [facility], [NON-STAFF] - Activity/Diet/Wound Care/Special Instructions: Patient is going to [facility] as tolerated follow up with primary care provider upon discharge continue antibiotics until complete follow up with kiln drawer upon discharge follow up with gastroenterology as needed upon discharge. Discharge Disposition: TRANSFER TO SNF/ECF
[2019-01-16] MEDS: NON FORMULARY DRUG (Omega-3 Fatty Acids [Omega-3] 1,000 MG) PO SCH (12:52)
[2019-01-16] MEDS: AZELASTINE 137MCG/SPRAY NASAL SCH (12:52)
[2019-01-16] MEDS: NON FORMULARY DRUG (Ubidecarenone [Co Q-10] 100 MG) PO SCH (12:52)
[2019-01-16 13:41] VITALS: BP 176/83; PULSE 66; TEMP 98
== END 2019-01-16 13:45 | DRG 391 ==
LOC: SUPCPDRO 21:11 → EC 21:11 → 4MS4W 23:56 → OBSVTOIN 01-11 10:38 → 4SSUR 01-11 15:57 → 3SCARD 01-14 03:30
PROVIDERS: ADMIT Internal Medicine; ATTEND Internal Medicine
DX: K57.32 Diverticulitis of large intestine without perforation or abscess without bleeding (principal); G93.41 Metabolic encephalopathy; N39.0 Urinary tract infection, site not specified; I48.0 Paroxysmal atrial fibrillation; B96.1 Klebsiella pneumoniae [K. pneumoniae] as the cause of diseases classified elsewhere; B96.89 Other specified bacterial agents as the cause of diseases classified elsewhere; E03.9 Hypothyroidism, unspecified; E86.0 Dehydration; F02.80 Dementia in other diseases classified elsewhere, unspecified severity, without behavioral disturbance, psychotic disturbance, mood disturbance, and anxiety; G20 Parkinson's disease; I10 Essential (primary) hypertension; I25.10 Atherosclerotic heart disease of native coronary artery without angina pectoris; I27.20 Pulmonary hypertension, unspecified; R29.6 Repeated falls; Z79.01 Long term (current) use of anticoagulants; Z79.02 Long term (current) use of antithrombotics/antiplatelets; Z79.890 Hormone replacement therapy; Z79.899 Other long term (current) drug therapy; Z83.3 Family history of diabetes mellitus; Z86.73 Personal history of transient ischemic attack (TIA), and cerebral infarction without residual deficits; Z90.710 Acquired absence of both cervix and uterus; Z91.81 History of falling
CPT/HCPCS: 36415; 70110; 70450; 71045; 74019; 74176; 80048; 80053; 80074; 81001; 83630; 83690; 83735; 84443; 84484; 85025; 87045; 87046; 87077; 87086; 87186; 87324; 87328; 87329; 93005; 96361; 96374; 99285